=== PATIENT | male | born 1955 | race Caucasian/White ===

== ENCOUNTER 2019-08-04 14:46 | Observation (INO) | payer MEDICARE ==
[2019-08-04] MEDS ORDERED: Sodium Chloride 0.9% 1000 ML 1,000 ML IV STA (15:03)
[2019-08-04] MEDS ORDERED: NovoLIN R IV ONE (15:03)
[2019-08-04] MEDS ORDERED: Nitrostat 0.4 MG (ED) SL ONE (15:04)
[2019-08-04] MEDS ORDERED: BABY ASPIRIN 81 MG CHEW PO ONE (15:04)
--- NOTE | 2019-08-04 15:06 | ERPHSYRPT ---
- History of Present Illness Time Seen by Provider: 08/04/19 14:55 Historian: patient Exam Limitations: no limitations Physician History: Intermittent chest pain for 3 days. Worsening malaise and fatigue over past three days. Activities at Onset: none Quality: pressure Location: substernal Chest Pain Radiation: no radiation Severity of Pain-Max: moderate Severity of Pain-Current: moderate Modifying Factors: Improves With: nothing Associated Symptoms: fatigue, weakness, No nausea, No vomiting, No palpitations , No heartburn, No abdominal pain, No shortness of breath, No cough, No hurts to breathe, No diaphoresis, No chills, No fever, No swelling/lump in chest, No syncope, No rash, No headache, No dizziness, No edema, No back pain Prior Chest Pain/Cardiac Workup: heart attack Nitro Today/Relief: no nitro taken today Aspirin Treatment Today: 81 mg x 1 Allergies/Adverse Reactions: Sulfa (Sulfonamide Antibiotics) Allergy (Verified 08/04/19 15:07) Hives Home Medications: Aspirin 81 mg PO DAILY 12/28/14 [History] Atenolol 25 mg PO DAILY 12/28/14 [History] Enalapril Maleate 5 mg [Vasotec 5 MG] 0 mg PO DAILY 12/28/14 [History] Insulin Aspart [NovoLOG Insulin] 0 unit SQ .UNKNOWN 12/28/14 [History] Insulin Lispro [Humalog] 0 unit SQ .UNKNOWN 12/28/14 [History] Multivitamin [Multi-Vitamin Daily] 1 each PO DAILY 12/28/14 [History] Simvastatin [Zocor] 0 mg PO DAILY 12/28/14 [History] Escitalopram Oxalate 10 mg [Lexapro 10 MG] 20 mg PO DAILY 08/04/19 [History] Hx Tetanus, Diphtheria Vaccination/Date Given: No Hx Influenza Vaccination/Date Given: No Hx Pneumococcal Vaccination/Date Given: Yes - Review of Systems Constitutional: Fatigue, Malaise, Weakness, No Fever, No Chills Eyes: No Eye Pain, No Vision Changes Ears, Nose, & Throat: No Ear Pain, No Nose Discharge, No Throat Pain, No Throat Swelling, No Hoarse Respiratory: No Cough, No Dyspnea Cardiac: No Chest Pain, No Edema, No Syncope Abdominal/Gastrointestinal: No Abdominal Pain, No Nausea, No Vomiting, No Diarrhea, No Hematemesis, No Hematochezia, No Melena Genitourinary Symptoms: No Dysuria, No Hematuria, No Flank Pain Musculoskeletal: No Back Pain, No Neck Pain Skin: No Rash Neurological: No Dizziness, No Focal Weakness, No Sensory Changes Psychological: No Anxiety Endocrine: No Symptoms Hematologic/Lymphatic: No Easy Bleeding, No Easy Bruising All Other Systems: Reviewed and Negative - Past Medical History Pertinent Past Medical History: Yes Cardiac History: Hypertension Endocrine Medical History: Diabetes Type I - Past Surgical History Past Surgical History: Yes Cardiac: CABG, Cardiac Catheterization, Cardiac Stent - Social History Smoking Status: Never smoker Exposure to second hand smoke: No Drug Use: none 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) - Nursing Vital Signs Nursing Vital Signs: Initial Vital Signs Temperature 97.8 F 08/04/19 14:47 Pulse Rate 68 08/04/19 14:47 Respiratory Rate 16 08/04/19 14:47 Blood Pressure 173/100 08/04/19 14:47 O2 Sat by Pulse Oximetry 94 L 08/04/19 14:47 Pain Scale Pain Intensity 4 - Physical Exam General Appearance: no apparent distress, alert Eye Exam: PERRL/EOMI, eyes nml inspection Ears, Nose, Throat Exam: normal ENT inspection, moist mucous membranes Neck Exam: normal inspection, non-tender, supple, full range of motion Respiratory Exam: normal breath sounds, lungs clear, No respiratory distress Cardiovascular Exam: regular rate/rhythm, normal heart sounds, normal peripheral pulses, capillary refill <2 sec Gastrointestinal/Abdomen Exam: soft, normal bowel sounds, tenderness (mild in the epigastric area), No mass Back Exam: normal inspection, No CVA tenderness, No vertebral tenderness Extremity Exam: normal inspection, normal range of motion Neurologic Exam: alert, oriented x 3, cooperative, 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, normal mood/affect, sensation nml, No motor deficits Skin Exam: normal color, warm, dry, No jaundice, No cyanosis SpO2 Interpretation: normal SpO2: 94 O2 Delivery: Room Air - Course Nursing assessment & vital signs reviewed: Yes EKG Interpreted by Me: RATE (68), Sinus Rhythm, LAFB, NORMAL INTERVALS, Right Bundle Branch Block, NORMAL ST-T, Other (no significant change compared to 2018 EKG except for RBBB) - Radiology Exams Chest X-ray Interpretation: Interpreted by me, Reviewed by me, No Fracture, No Pneumonia, No Infiltrates, Nml Mediastinum, Other (cardiomegaly) Ordered Tests: Active Orders 24 hr Category Date Time Status Ion Exchange Operator STAT Care 08/04/19 15:02 Active EKG-ER Only STAT Care 08/04/19 15:02 Active IV Insertion STAT Care 08/04/19 15:02 Active Pulse Oximetry (ED) STAT Care 08/04/19 15:02 Active CHEST 1 VIEW (PORTABLE) Stat Exams 08/04/19 15:03 Completed AMYLASE Stat Lab 08/04/19 15:05 Completed BLOOD CULTURE Stat Lab 08/04/19 15:20 Received CBC W DIFF Stat Lab 08/04/19 15:05 Completed CMP Stat Lab 08/04/19 15:05 Completed CULTURE,URINE Stat Lab 08/04/19 15:39 Ordered LIPASE Stat Lab 08/04/19 15:05 Completed Lactic Acid Stat Lab 08/04/19 15:28 Completed PROTIME WITH INR Stat Lab 08/04/19 15:05 Completed PTT Stat Lab 08/04/19 15:05 Completed TROPONIN Q3H Lab 08/04/19 Completed TROPONIN Q3H Lab 08/04/19 20:15 Ordered TROPONIN Q3H Lab 08/04/19 23:15 Ordered TROPONIN Q3H Lab 08/05/19 02:15 Ordered TROPONIN Q3H Lab 08/05/19 05:15 Ordered UA W/RFX UR CULTURE Stat Lab 08/04/19 15:39 Completed Transfer Order Routine Transfer 08/04/19 Ordered Medication Summary Discontinued Medications Generic Name Dose Route Start Last Admin Trade Name Freq PRN Reason Stop Dose Admin Aspirin 243 mg 08/04/19 15:04 08/04/19 15:37 Baby Aspirin 81 Mg Chew PO 08/04/19 15:05 243 mg STAT ONE Administration Sodium Chloride 1,000 mls @ 999 mls/hr 08/04/19 15:03 08/04/19 16:46 Sodium Chloride 0.9% 1000 Ml IV 08/04/19 16:03 Infused .Q1H1M STA Infusion Sodium Chloride Confirm 08/04/19 15:30 Sodium Chloride 0.9% 1000 Ml Administered 08/04/19 15:31 Dose 1,000 mls @ ud .ROUTE .STK-MED ONE Insulin Human Regular 12 unit 08/04/19 15:03 08/04/19 15:36 Novolin R IV 08/04/19 15:04 12 unit STAT ONE Administration Insulin Human Regular Confirm 08/04/19 15:30 Novolin R Administered 08/04/19 15:31 Dose 1 unit .ROUTE .STK-MED ONE Nitroglycerin 0.4 mg 08/04/19 15:04 08/04/19 15:37 Nitrostat 0.4 Mg (Ed) SL 08/04/19 15:05 0.4 mg STAT ONE Administration Lab/Rad Data: Laboratory Result Diagrams 08/04/19 15:05 08/04/19 15:05 Laboratory Results 08/04/19 08/04/19 08/04/19 Range/Units Unknown 15:39 15:28 WBC (4.0-10.5) K/mm3 RBC (4.1-5.6) M/mm3 Hgb (12.5-18.0) gm/dl Hct (42-50) % MCV (78-100) fl MCH (26-32) pg MCHC (32-36) g/dl RDW (11.5-14.0) % Plt Count (150-450) K/mm3 MPV (6-9.5) fl Gran % (36.0-66.0) % Eos # (Auto) (0-0.5) Absolute Lymphs (auto) (1.0-4.6) Absolute Monos (auto) (0.0-1.3) Lymphocytes % (24.0-44.0) % Monocytes % (0.0-12.0) % Eosinophils % (0.00-5.0) % Basophils % (0.0-0.4) % Absolute Granulocytes (1.4-6.9) Basophils # (0-0.4) PT (8.83-12.87) SECONDS INR (0.8-3.0) APTT (24.1-36.1) SECONDS Sodium (137-145) mmol/L Potassium (3.5-5.1) mmol/L Chloride (98-107) mmol/L Carbon Dioxide (22-30) mmol/L Anion Gap (5-15) MEQ/L BUN (9-20) mg/dL Creatinine (0.66-1.25) mg/dL Estimated GFR ML/MIN Glucose (74-106) mg/dL Lactic Acid 1.6 (0.4-2.0) Calcium (8.4-10.2) mg/dL Total Bilirubin (0.2-1.3) mg/dL AST (17-59) U/L ALT (0-50) U/L Alkaline Phosphatase (38-126) U/L Troponin I < 0.012 (0.000-0.034) ng/mL Serum Total Protein (6.3-8.2) g/dL Albumin (3.5-5.0) g/dL Amylase (30-110) U/L Lipase (23-300) U/L Urine Color YELLOW (YELLOW) Urine Appearance CLEAR (CLEAR) Urine pH 5.0 (5-6) Ur Specific [place] 1.028 (1.005-1.025) Urine Protein NEGATIVE (Negative) Urine Ketones NEGATIVE (NEGATIVE) Urine Blood NEGATIVE (0-5) Carlos/ul Urine Nitrite NEGATIVE (NEGATIVE) Urine Bilirubin NEGATIVE (NEGATIVE) Urine Urobilinogen NEGATIVE (0-1) mg/dL Ur Leukocyte Esterase NEGATIVE (NEGATIVE) Urine WBC (Auto) NONE (0-5) /HPF Urine RBC (Auto) 3-5 (0-2) /HPF U Epithel Cells (Auto) NONE (FEW) /HPF Urine Bacteria (Auto) NONE (NEGATIVE) /HPF Urine Mucus (Auto) SLIGHT (NEGATIVE) /HPF Urine Culture Reflexed ORDERED SEPARATELY (NO) Urine Glucose >=500 (NEGATIVE) mg/dL 08/04/19 08/04/19 08/04/19 Range/Units 15:05 15:05 15:05 WBC (4.0-10.5) K/mm3 RBC (4.1-5.6) M/mm3 Hgb (12.5-18.0) gm/dl Hct (42-50) % MCV (78-100) fl MCH (26-32) pg MCHC (32-36) g/dl RDW (11.5-14.0) % Plt Count (150-450) K/mm3 MPV (6-9.5) fl Gran % (36.0-66.0) % Eos # (Auto) (0-0.5) Absolute Lymphs (auto) (1.0-4.6) Absolute Monos (auto) (0.0-1.3) Lymphocytes % (24.0-44.0) % Monocytes % (0.0-12.0) % Eosinophils % (0.00-5.0) % Basophils % (0.0-0.4) % Absolute Granulocytes (1.4-6.9) Basophils # (0-0.4) PT 11.2 (8.83-12.87) SECONDS INR 0.99 (0.8-3.0) APTT 31.5 (24.1-36.1) SECONDS Sodium 138 (137-145) mmol/L Potassium 4.9 (3.5-5.1) mmol/L Chloride 102 (98-107) mmol/L Carbon Dioxide 22 (22-30) mmol/L Anion Gap 18.4 H (5-15) MEQ/L BUN 18 (9-20) mg/dL Creatinine 0.68 (0.66-1.25) mg/dL Estimated GFR > 60.0 ML/MIN Glucose 364 H (74-106) mg/dL Lactic Acid (0.4-2.0) Calcium 9.6 (8.4-10.2) mg/dL Total Bilirubin 0.50 (0.2-1.3) mg/dL AST 34 (17-59) U/L ALT 23 (0-50) U/L Alkaline Phosphatase 67 (38-126) U/L Troponin I (0.000-0.034) ng/mL Serum Total Protein 7.7 (6.3-8.2) g/dL Albumin 4.2 (3.5-5.0) g/dL Amylase 98 (30-110) U/L Lipase 376 H (23-300) U/L Urine Color (YELLOW) Urine Appearance (CLEAR) Urine pH (5-6) Ur Specific [place] (1.005-1.025) Urine Protein (Negative) Urine Ketones (NEGATIVE) Urine Blood (0-5) Carlos/ul Urine Nitrite (NEGATIVE) Urine Bilirubin (NEGATIVE) Urine Urobilinogen (0-1) mg/dL Ur Leukocyte Esterase (NEGATIVE) Urine WBC (Auto) (0-5) /HPF Urine RBC (Auto) (0-2) /HPF U Epithel Cells (Auto) (FEW) /HPF Urine Bacteria (Auto) (NEGATIVE) /HPF Urine Mucus (Auto) (NEGATIVE) /HPF Urine Culture Reflexed (NO) Urine Glucose (NEGATIVE) mg/dL 08/04/19 Range/Units 15:05 WBC 5.2 (4.0-10.5) K/mm3 RBC 5.12 (4.1-5.6) M/mm3 Hgb 13.2 (12.5-18.0) gm/dl Hct 40.0 L (42-50) % MCV 78.1 (78-100) fl MCH 25.8 L (26-32) pg MCHC 33.0 (32-36) g/dl RDW 14.8 H (11.5-14.0) % Plt Count 275 (150-450) K/mm3 MPV 9.6 H (6-9.5) fl Gran % 67.2 H (36.0-66.0) % Eos # (Auto) 0.10 (0-0.5) Absolute Lymphs (auto) 1.20 (1.0-4.6) Absolute Monos (auto) 0.40 (0.0-1.3) Lymphocytes % 22.9 L (24.0-44.0) % Monocytes % 7.6 (0.0-12.0) % Eosinophils % 1.9 (0.00-5.0) % Basophils % 0.4 (0.0-0.4) % Absolute Granulocytes 3.51 (1.4-6.9) Basophils # 0.02 (0-0.4) PT (8.83-12.87) SECONDS INR (0.8-3.0) APTT (24.1-36.1) SECONDS Sodium (137-145) mmol/L Potassium (3.5-5.1) mmol/L Chloride (98-107) mmol/L Carbon Dioxide (22-30) mmol/L Anion Gap (5-15) MEQ/L BUN (9-20) mg/dL Creatinine (0.66-1.25) mg/dL Estimated GFR ML/MIN Glucose (74-106) mg/dL Lactic Acid (0.4-2.0) Calcium (8.4-10.2) mg/dL Total Bilirubin (0.2-1.3) mg/dL AST (17-59) U/L ALT (0-50) U/L Alkaline Phosphatase (38-126) U/L Troponin I (0.000-0.034) ng/mL Serum Total Protein (6.3-8.2) g/dL Albumin (3.5-5.0) g/dL Amylase (30-110) U/L Lipase (23-300) U/L Urine Color (YELLOW) Urine Appearance (CLEAR) Urine pH (5-6) Ur Specific [place] (1.005-1.025) Urine Protein (Negative) Urine Ketones (NEGATIVE) Urine Blood (0-5) Carlos/ul Urine Nitrite (NEGATIVE) Urine Bilirubin (NEGATIVE) Urine Urobilinogen (0-1) mg/dL Ur Leukocyte Esterase (NEGATIVE) Urine WBC (Auto) (0-5) /HPF Urine RBC (Auto) (0-2) /HPF U Epithel Cells (Auto) (FEW) /HPF Urine Bacteria (Auto) (NEGATIVE) /HPF Urine Mucus (Auto) (NEGATIVE) /HPF Urine Culture Reflexed (NO) Urine Glucose (NEGATIVE) mg/dL - Progress Progress: improved Air Movement: good Progress Note: 08/04/19 17:45 Patient has remained chest pain free after one SL nitroglycerin. Patient has remained in sinus rhythm on the media monitor throughout his time in the emergency department. TAMIKA Risk Score for UA: 4; HEART score: 4, both place patient at moderate risk of MACE 08/04/19 17:50 Discussed the case with Dr Steen, Hospitalist. Dr Steen accepted the patient for observation at [facility] for further evaluation and monitoring. Blood Culture(s) Obtained: No Antibiotics given: No Discussed with : Mague Will see patient in: hospital (observation) Counseled pt/family regarding: lab results, diagnosis, need for follow-up, rad results - Departure Departure Disposition: Observation ([facility]) Clinical Impression: Chest pain at rest, Hyperglycemia, unspecified Hypertension Qualifiers: Hypertension type: essential hypertension Qualified Code(s): I10 - Essential ( primary) hypertension Condition: Fair Critical Care Time: No Referrals: ARTURO BOB NP [Primary Care Provider] -
[2019-08-04 15:15] LABS: BASOPHIL % 0.4 % (0.0-0.4); Basophil (Absolute #) 0.02 (0-0.4); Eosinophil % 1.9 % (0.00-5.0); Granulocyte Absolute (ANC) 3.51 (1.4-6.9); Granulocytes % 67.2 % (36.0-66.0); Hemoglobin 13.2 gm/dl (12.5-18.0); Lymphocytes % 22.9 % (24.0-44.0); Mean Cell Volume 78.1 fl (78-100); Mean Corpuscular Hemoglobin 25.8 pg (26-32); Mean Platelet Volume 9.6 fl (6-9.5); Monocytes % 7.6 % (0.0-12.0); Platelet Count 275 K/mm3 (150-450); Red Blood Count 5.12 M/mm3 (4.1-5.6); Red Cell Distribution Width 14.8 % (11.5-14.0); White Blood Count 5.2 K/mm3 (4.0-10.5)
[2019-08-04] MEDS ORDERED: NovoLIN R ONE (15:30)
[2019-08-04] MEDS ORDERED: Sodium Chloride 0.9% 1000 ML 1,000 ML ONE (15:30)
[2019-08-04 15:32] LABS: INR 0.99 (0.8-3.0); PROTIME 11.2 SECONDS (8.83-12.87)
[2019-08-04 15:35] LABS: PTT 31.5 SECONDS (24.1-36.1)
[2019-08-04 15:38] LABS: ALBUMIN 4.2 g/dL (3.5-5.0); ALKALINE PHOSPHATASE 67 U/L (38-126); ANION GAP 18.4 MEQ/L (5-15); BLOOD UREA NITROGEN 18 mg/dL (9-20); CHLORIDE 102 mmol/L (98-107); Calcium 9.6 mg/dL (8.4-10.2); Carbon Dioxide 22 mmol/L (22-30); Creatinine 1 0.68 mg/dL (0.66-1.25); Glucose 364 mg/dL (74-106); Potassium 4.9 mmol/L (3.5-5.1); SGOT/AST 34 U/L (17-59); SGPT/ALT 23 U/L (0-50); SODIUM 138 mmol/L (137-145); Total Protein 7.7 g/dL (6.3-8.2)
[2019-08-04 15:51] LABS: AMYLASE 98 U/L (30-110); LIPASE 376 U/L (23-300)
--- NOTE | 2019-08-04 16:16 | XRAY ---
Indication: Chest pain. Possible sepsis. Comparison: December 28, 2014. Portable chest remains clear. Heart is now enlarged with interval CABG surgery. Bony thorax intact. Impression: Cardiomegaly. Negative acute pneumonic process or CHF.
[2019-08-04 16:25] LABS: Appearance CLEAR (CLEAR); Bilirubin NEGATIVE (NEGATIVE); Blood NEGATIVE Ery/ul (0-5); Glucose >=500 mg/dL (NEGATIVE); Ketones NEGATIVE (NEGATIVE); Leukocyte Esterase NEGATIVE (NEGATIVE); Mucus SLIGHT /HPF (NEGATIVE); Nitrite NEGATIVE (NEGATIVE); Protein,Urine Dip NEGATIVE (Negative); Specific Gravity 1.028 (1.005-1.025); Urobilinogen NEGATIVE mg/dL (0-1)
[2019-08-04] MEDS ORDERED: TYLENOL 325 MG PO PRN (18:22)
[2019-08-04] MEDS ORDERED: NovoLIN R SQ PRN (18:22)
[2019-08-04] MEDS: Sodium Chloride 0.9% 1000 ML 1,000 ML IV SCH (19:45)
[2019-08-04] MEDS ORDERED: Lantus Insulin SQ SCH (22:00)
[2019-08-04] MEDS ORDERED: Pepcid 20 MG PO SCH (22:00)
[2019-08-04] MEDS ORDERED: NEURONTIN 300 MG PO SCH (22:00)
[2019-08-04] MEDS ORDERED: Glucophage 500 MG PO SCH (22:00)
[2019-08-04] MEDS ORDERED: ELAVIL 25 MG PO SCH (22:00)
[2019-08-04] MEDS: NovoLOG Insulin SQ PRN (22:43)
[2019-08-05 03:10] LABS: BASOPHIL % 0.5 % (0.0-0.4); Basophil (Absolute #) 0.03 (0-0.4); Eosinophil (Absolute #) 0.13 (0-0.5); Granulocyte Absolute (ANC) 3.89 (1.4-6.9); Granulocytes % 59.8 % (36.0-66.0); Hematocrit 38.1 % (42-50); Hemoglobin 12.3 gm/dl (12.5-18.0); Lymphocyte (Absolute #) 1.93 (1.0-4.6); Lymphocytes % 29.7 % (24.0-44.0); Mean Corpuscular Hemoglobin 25.5 pg (26-32); Mean Corpuscular Hgb Concent. 32.3 g/dl (32-36); Mean Platelet Volume 9.6 fl (6-9.5); Monocyte (Absolute #) 0.52 (0.0-1.3); Platelet Count 264 K/mm3 (150-450); Red Blood Count 4.82 M/mm3 (4.1-5.6); Red Cell Distribution Width 14.8 % (11.5-14.0); White Blood Count 6.5 K/mm3 (4.0-10.5)
[2019-08-05 03:28] LABS: ANION GAP 14.9 MEQ/L (5-15); BLOOD UREA NITROGEN 14 mg/dL (9-20); CHLORIDE 109 mmol/L (98-107); Carbon Dioxide 23 mmol/L (22-30); Creatinine 1 0.71 mg/dL (0.66-1.25); Glucose 94 mg/dL (74-106); SODIUM 143 mmol/L (137-145)
[2019-08-05 03:32] LABS: Potassium 3.8 mmol/L (3.5-5.1)
[2019-08-05] MEDS: Sodium Chloride 0.9% 1000 ML 1,000 ML IV SCH (05:26)
[2019-08-05 07:55] VITALS: BP 199/93; PULSE 97; O2SAT 95
[2019-08-05] MEDS ORDERED: Glucophage 500 MG PO SCH (08:00)
[2019-08-05] MEDS: NovoLOG Insulin SQ PRN (08:15)
--- NOTE | 2019-08-05 08:29 | PCM.SSS ---
History of Present Illness - Chief Complaint Chief Complaint: Chest Pain, Malaise, Elevated Lipase History of Present Illness: is a 64 year old male with a 2 day history of poor energy level, on the date of arrival he developed pain in his chest with belching and gas, he has been completely pain free since admission. no nausea, vomiting or abdominal discomfort during the entire episode. he has a history of CABG, has not seen cardiology in the last 2 years. - Review of Systems Constitutional: No Fever, No Chills Cardiac: Chest Pain Abdominal/Gastrointestinal: No Abdominal Pain, No Nausea, No Vomiting, No Diarrhea Genitourinary Symptoms: No Dysuria Skin: No Rash All Other Systems: Reviewed and Negative Medications & Allergies Home Medications: Home Medication List Aspirin 81 mg PO DAILY 12/28/14 [History Confirmed 08/04/19] Insulin Lispro [Humalog] 0 unit SQ UD 12/28/14 [History Confirmed 08/04/19] Multivitamin [Multi-Vitamin Daily] 1 each PO DAILY 12/28/14 [History Confirmed 08/04/19] Amitriptyline HCl 25 mg [Elavil 25 mg] 25 mg PO BID 08/04/19 [History Confirmed 08/04/19] Atorvastatin Calcium 80 mg PO DAILY 08/04/19 [History Confirmed 08/04/19] Escitalopram Oxalate 10 mg [Lexapro 10 MG] 20 mg PO DAILY 08/04/19 [History Confirmed 08/04/19] Gabapentin 600 mg PO TID 08/04/19 [History Confirmed 08/04/19] Insulin Glargine,Hum.rec.anlog [Mike Nettles] 80 units SQ HS 08/04/19 [ History Confirmed 08/04/19] Lisinopril 10 mg [Zestril 10 MG] 10 mg PO DAILY 08/04/19 [History Confirmed 08/04/19] Metformin HCl [Glucophage] 1,000 mg PO BID 08/04/19 [History Confirmed 08/04/19] Metoprolol Tartrate 25 mg PO BID #0 08/05/19 [Rx Confirmed 08/04/19] Omeprazole 40 mg PO DAILY #30 capsule. 08/05/19 [Rx] Allergies/Adverse Reactions: Allergies Allergy/AdvReac Type Severity Reaction Status Date / Time Sulfa (Sulfonamide Allergy Hives Verified 08/04/19 15:07 Antibiotics) - Past Medical History Past Medical History: Yes Neurological History: No Pertinent History Cardiac History: Congestive Heart Failure, Hypertension, Myocardial Infarction ( [place]) Respiratory History: No Pertinent History Endocrine Medical History: Diabetes Type II Musculoskelatal History: No Pertinent History GI Medical History: No Pertinent History History: No Pertinent History Pyscho-Social History: Anxiety, Depression Male Reproductive Disorders: No Pertinent History - Past Surgical History Past Surgical History: Yes Neuro Surgical History: No Pertinent History Cardiac History: CABG, Cardiac Catheterization, Cardiac Stent Respiratory Surgery: No Pertinent History GI Surgical History: No Pertinent History Genitourinary Surgical Hx: No Pertinent History Musculskeletal Surgical Hx: No Pertinent History Male Surgical History: No Pertinent History - Social History Smoking Status: Never smoker Exposure to second hand smoke: No Alcohol: Occasionally Drug Use: none - Physical Exam Vital Signs: Vital Signs - 24 hr Temp Pulse Resp BP Pulse Ox 08/05/19 07:54 98.3 F 97 H 20 199/93 95 08/05/19 04:06 97.8 F 75 17 146/86 94 L 08/05/19 00:13 98.5 F 74 20 187/88 95 08/04/19 20:16 97.9 F 68 18 130/94 96 08/04/19 19:41 97.9 F 68 18 130/94 96 08/04/19 18:56 95 08/04/19 18:08 94 L 08/04/19 18:07 68 18 158/90 95 08/04/19 17:07 98.0 F 64 14 138/76 96 08/04/19 16:45 64 18 129/70 95 08/04/19 15:50 98.1 F 68 17 102/59 93 L 08/04/19 15:22 96 08/04/19 14:47 97.8 F 68 16 173/100 94 L General Appearance: no apparent distress, obese Neurologic Exam: alert, oriented x 3, cooperative Respiratory Exam: normal breath sounds, lungs clear, No respiratory distress Cardiovascular Exam: regular rate/rhythm, normal heart sounds, normal peripheral pulses Gastrointestinal/Abdomen Exam: soft, normal bowel sounds, No tenderness, No mass Extremity Exam: normal inspection, normal range of motion, pelvis stable Skin Exam: normal color, warm, dry, No rash Results - Labs Lab/Micro Results: Accuchecks Date 08/05/19 Accucheck Value: 228 Accucheck Value: 64 Accucheck Value: 168 Accucheck Value: 283 Lab Results-Last 24 Hours 08/04/19 08/04/19 08/04/19 Range/Units 15:05 15:05 15:05 WBC 5.2 (4.0-10.5) K/mm3 RBC 5.12 (4.1-5.6) M/mm3 Hgb 13.2 (12.5-18.0) gm/dl Hct 40.0 L (42-50) % MCV 78.1 (78-100) fl MCH 25.8 L (26-32) pg MCHC 33.0 (32-36) g/dl RDW 14.8 H (11.5-14.0) % Plt Count 275 (150-450) K/mm3 MPV 9.6 H (6-9.5) fl Gran % 67.2 H (36.0-66.0) % Eos # (Auto) 0.10 (0-0.5) Absolute Lymphs (auto) 1.20 (1.0-4.6) Absolute Monos (auto) 0.40 (0.0-1.3) Lymphocytes % 22.9 L (24.0-44.0) % Monocytes % 7.6 (0.0-12.0) % Eosinophils % 1.9 (0.00-5.0) % Basophils % 0.4 (0.0-0.4) % Absolute Granulocytes 3.51 (1.4-6.9) Basophils # 0.02 (0-0.4) PT 11.2 (8.83-12.87) SECONDS INR 0.99 (0.8-3.0) APTT 31.5 (24.1-36.1) SECONDS Sodium 138 (137-145) mmol/L Potassium 4.9 (3.5-5.1) mmol/L Chloride 102 (98-107) mmol/L Carbon Dioxide 22 (22-30) mmol/L Anion Gap 18.4 H (5-15) MEQ/L BUN 18 (9-20) mg/dL Creatinine 0.68 (0.66-1.25) mg/dL Estimated GFR > 60.0 ML/MIN Glucose 364 H (74-106) mg/dL Lactic Acid (0.4-2.0) Calcium 9.6 (8.4-10.2) mg/dL Total Bilirubin 0.50 (0.2-1.3) mg/dL AST 34 (17-59) U/L ALT 23 (0-50) U/L Alkaline Phosphatase 67 (38-126) U/L Troponin I (0.000-0.034) ng/mL Serum Total Protein 7.7 (6.3-8.2) g/dL Albumin 4.2 (3.5-5.0) g/dL Amylase (30-110) U/L Lipase (23-300) U/L Urine Color (YELLOW) Urine Appearance (CLEAR) Urine pH (5-6) Ur Specific [place] (1.005-1.025) Urine Protein (Negative) Urine Ketones (NEGATIVE) Urine Blood (0-5) Carlos/ul Urine Nitrite (NEGATIVE) Urine Bilirubin (NEGATIVE) Urine Urobilinogen (0-1) mg/dL Ur Leukocyte Esterase (NEGATIVE) Urine WBC (Auto) (0-5) /HPF Urine RBC (Auto) (0-2) /HPF U Epithel Cells (Auto) (FEW) /HPF Urine Bacteria (Auto) (NEGATIVE) /HPF Urine Mucus (Auto) (NEGATIVE) /HPF Urine Culture Reflexed (NO) Urine Glucose (NEGATIVE) mg/dL 08/04/19 08/04/19 08/04/19 Range/Units 15:05 15:28 15:39 WBC (4.0-10.5) K/mm3 RBC (4.1-5.6) M/mm3 Hgb (12.5-18.0) gm/dl Hct (42-50) % MCV (78-100) fl MCH (26-32) pg MCHC (32-36) g/dl RDW (11.5-14.0) % Plt Count (150-450) K/mm3 MPV (6-9.5) fl Gran % (36.0-66.0) % Eos # (Auto) (0-0.5) Absolute Lymphs (auto) (1.0-4.6) Absolute Monos (auto) (0.0-1.3) Lymphocytes % (24.0-44.0) % Monocytes % (0.0-12.0) % Eosinophils % (0.00-5.0) % Basophils % (0.0-0.4) % Absolute Granulocytes (1.4-6.9) Basophils # (0-0.4) PT (8.83-12.87) SECONDS INR (0.8-3.0) APTT (24.1-36.1) SECONDS Sodium (137-145) mmol/L Potassium (3.5-5.1) mmol/L Chloride (98-107) mmol/L Carbon Dioxide (22-30) mmol/L Anion Gap (5-15) MEQ/L BUN (9-20) mg/dL Creatinine (0.66-1.25) mg/dL Estimated GFR ML/MIN Glucose (74-106) mg/dL Lactic Acid 1.6 (0.4-2.0) Calcium (8.4-10.2) mg/dL Total Bilirubin (0.2-1.3) mg/dL AST (17-59) U/L ALT (0-50) U/L Alkaline Phosphatase (38-126) U/L Troponin I (0.000-0.034) ng/mL Serum Total Protein (6.3-8.2) g/dL Albumin (3.5-5.0) g/dL Amylase 98 (30-110) U/L Lipase 376 H (23-300) U/L Urine Color YELLOW (YELLOW) Urine Appearance CLEAR (CLEAR) Urine pH 5.0 (5-6) Ur Specific [place] 1.028 (1.005-1.025) Urine Protein NEGATIVE (Negative) Urine Ketones NEGATIVE (NEGATIVE) Urine Blood NEGATIVE (0-5) Carlos/ul Urine Nitrite NEGATIVE (NEGATIVE) Urine Bilirubin NEGATIVE (NEGATIVE) Urine Urobilinogen NEGATIVE (0-1) mg/dL Ur Leukocyte Esterase NEGATIVE (NEGATIVE) Urine WBC (Auto) NONE (0-5) /HPF Urine RBC (Auto) 3-5 (0-2) /HPF U Epithel Cells (Auto) NONE (FEW) /HPF Urine Bacteria (Auto) NONE (NEGATIVE) /HPF Urine Mucus (Auto) SLIGHT (NEGATIVE) /HPF Urine Culture Reflexed ORDERED SEPARATELY (NO) Urine Glucose >=500 (NEGATIVE) mg/dL 08/04/19 08/04/19 08/04/19 Range/Units 21:02 23:29 Unknown WBC (4.0-10.5) K/mm3 RBC (4.1-5.6) M/mm3 Hgb (12.5-18.0) gm/dl Hct (42-50) % MCV (78-100) fl MCH (26-32) pg MCHC (32-36) g/dl RDW (11.5-14.0) % Plt Count (150-450) K/mm3 MPV (6-9.5) fl Gran % (36.0-66.0) % Eos # (Auto) (0-0.5) Absolute Lymphs (auto) (1.0-4.6) Absolute Monos (auto) (0.0-1.3) Lymphocytes % (24.0-44.0) % Monocytes % (0.0-12.0) % Eosinophils % (0.00-5.0) % Basophils % (0.0-0.4) % Absolute Granulocytes (1.4-6.9) Basophils # (0-0.4) PT (8.83-12.87) SECONDS INR (0.8-3.0) APTT (24.1-36.1) SECONDS Sodium (137-145) mmol/L Potassium (3.5-5.1) mmol/L Chloride (98-107) mmol/L Carbon Dioxide (22-30) mmol/L Anion Gap (5-15) MEQ/L BUN (9-20) mg/dL Creatinine (0.66-1.25) mg/dL Estimated GFR ML/MIN Glucose (74-106) mg/dL Lactic Acid (0.4-2.0) Calcium (8.4-10.2) mg/dL Total Bilirubin (0.2-1.3) mg/dL AST (17-59) U/L ALT (0-50) U/L Alkaline Phosphatase (38-126) U/L Troponin I < 0.012 < 0.012 < 0.012 (0.000-0.034) ng/mL Serum Total Protein (6.3-8.2) g/dL Albumin (3.5-5.0) g/dL Amylase (30-110) U/L Lipase (23-300) U/L Urine Color (YELLOW) Urine Appearance (CLEAR) Urine pH (5-6) Ur Specific [place] (1.005-1.025) Urine Protein (Negative) Urine Ketones (NEGATIVE) Urine Blood (0-5) Carlos/ul Urine Nitrite (NEGATIVE) Urine Bilirubin (NEGATIVE) Urine Urobilinogen (0-1) mg/dL Ur Leukocyte Esterase (NEGATIVE) Urine WBC (Auto) (0-5) /HPF Urine RBC (Auto) (0-2) /HPF U Epithel Cells (Auto) (FEW) /HPF Urine Bacteria (Auto) (NEGATIVE) /HPF Urine Mucus (Auto) (NEGATIVE) /HPF Urine Culture Reflexed (NO) Urine Glucose (NEGATIVE) mg/dL 08/05/19 08/05/19 08/05/19 Range/Units 03:08 03:08 03:08 WBC 6.5 (4.0-10.5) K/mm3 RBC 4.82 (4.1-5.6) M/mm3 Hgb 12.3 L (12.5-18.0) gm/dl Hct 38.1 L (42-50) % MCV 79.0 (78-100) fl MCH 25.5 L (26-32) pg MCHC 32.3 (32-36) g/dl RDW 14.8 H (11.5-14.0) % Plt Count 264 (150-450) K/mm3 MPV 9.6 H (6-9.5) fl Gran % 59.8 (36.0-66.0) % Eos # (Auto) 0.13 (0-0.5) Absolute Lymphs (auto) 1.93 (1.0-4.6) Absolute Monos (auto) 0.52 (0.0-1.3) Lymphocytes % 29.7 (24.0-44.0) % Monocytes % 8.0 (0.0-12.0) % Eosinophils % 2.0 (0.00-5.0) % Basophils % 0.5 (0.0-0.4) % Absolute Granulocytes 3.89 (1.4-6.9) Basophils # 0.03 (0-0.4) PT (8.83-12.87) SECONDS INR (0.8-3.0) APTT (24.1-36.1) SECONDS Sodium 143 (137-145) mmol/L Potassium 3.8 D (3.5-5.1) mmol/L Chloride 109 H (98-107) mmol/L Carbon Dioxide 23 (22-30) mmol/L Anion Gap 14.9 (5-15) MEQ/L BUN 14 (9-20) mg/dL Creatinine 0.71 (0.66-1.25) mg/dL Estimated GFR > 60.0 ML/MIN Glucose 94 (74-106) mg/dL Lactic Acid (0.4-2.0) Calcium 9.0 (8.4-10.2) mg/dL Total Bilirubin (0.2-1.3) mg/dL AST (17-59) U/L ALT (0-50) U/L Alkaline Phosphatase (38-126) U/L Troponin I (0.000-0.034) ng/mL Serum Total Protein (6.3-8.2) g/dL Albumin (3.5-5.0) g/dL Amylase (30-110) U/L Lipase 420 H (23-300) U/L Urine Color (YELLOW) Urine Appearance (CLEAR) Urine pH (5-6) Ur Specific [place] (1.005-1.025) Urine Protein (Negative) Urine Ketones (NEGATIVE) Urine Blood (0-5) Carlos/ul Urine Nitrite (NEGATIVE) Urine Bilirubin (NEGATIVE) Urine Urobilinogen (0-1) mg/dL Ur Leukocyte Esterase (NEGATIVE) Urine WBC (Auto) (0-5) /HPF Urine RBC (Auto) (0-2) /HPF U Epithel Cells (Auto) (FEW) /HPF Urine Bacteria (Auto) (NEGATIVE) /HPF Urine Mucus (Auto) (NEGATIVE) /HPF Urine Culture Reflexed (NO) Urine Glucose (NEGATIVE) mg/dL 08/05/19 08/05/19 Range/Units 03:08 04:58 WBC (4.0-10.5) K/mm3 RBC (4.1-5.6) M/mm3 Hgb (12.5-18.0) gm/dl Hct (42-50) % MCV (78-100) fl MCH (26-32) pg MCHC (32-36) g/dl RDW (11.5-14.0) % Plt Count (150-450) K/mm3 MPV (6-9.5) fl Gran % (36.0-66.0) % Eos # (Auto) (0-0.5) Absolute Lymphs (auto) (1.0-4.6) Absolute Monos (auto) (0.0-1.3) Lymphocytes % (24.0-44.0) % Monocytes % (0.0-12.0) % Eosinophils % (0.00-5.0) % Basophils % (0.0-0.4) % Absolute Granulocytes (1.4-6.9) Basophils # (0-0.4) PT (8.83-12.87) SECONDS INR (0.8-3.0) APTT (24.1-36.1) SECONDS Sodium (137-145) mmol/L Potassium (3.5-5.1) mmol/L Chloride (98-107) mmol/L Carbon Dioxide (22-30) mmol/L Anion Gap (5-15) MEQ/L BUN (9-20) mg/dL Creatinine (0.66-1.25) mg/dL Estimated GFR ML/MIN Glucose (74-106) mg/dL Lactic Acid (0.4-2.0) Calcium (8.4-10.2) mg/dL Total Bilirubin (0.2-1.3) mg/dL AST (17-59) U/L ALT (0-50) U/L Alkaline Phosphatase (38-126) U/L Troponin I 0.014 0.013 (0.000-0.034) ng/mL Serum Total Protein (6.3-8.2) g/dL Albumin (3.5-5.0) g/dL Amylase (30-110) U/L Lipase (23-300) U/L Urine Color (YELLOW) Urine Appearance (CLEAR) Urine pH (5-6) Ur Specific [place] (1.005-1.025) Urine Protein (Negative) Urine Ketones (NEGATIVE) Urine Blood (0-5) Carlos/ul Urine Nitrite (NEGATIVE) Urine Bilirubin (NEGATIVE) Urine Urobilinogen (0-1) mg/dL Ur Leukocyte Esterase (NEGATIVE) Urine WBC (Auto) (0-5) /HPF Urine RBC (Auto) (0-2) /HPF U Epithel Cells (Auto) (FEW) /HPF Urine Bacteria (Auto) (NEGATIVE) /HPF Urine Mucus (Auto) (NEGATIVE) /HPF Urine Culture Reflexed (NO) Urine Glucose (NEGATIVE) mg/dL Microbiology 08/04/19 03:44 Urine Culture - Preliminary Clean Catch Midstream NO GROWTH TO DATE Accuchecks Date 08/05/19 Accucheck Value: 228 Accucheck Value: 64 Accucheck Value: 168 Accucheck Value: 283 - Radiology Impressions Radiology Exams & Impressions: Radiology Procedures Category Date Time Status CHEST 1 VIEW (PORTABLE) Stat Exams 08/04/19 15:03 Completed Assessment/Plan (1) Chest pain Current Visit: Yes Status: Acute Assessment & Plan: IL ruled out, possibly GI cause. will add PPI and have f/u with primary and cardiology. may need gallbladder ultrasound if symptoms recur in light of minimal lipase elevation, no clinical signs of pancreatitis Code(s): R07.9 - CHEST PAIN, UNSPECIFIED (2) Hypertension Current Visit: Yes Status: Acute Qualifiers: Hypertension type: essential hypertension Qualified Code(s): I10 - Essential (primary) hypertension Code(s): I10 - ESSENTIAL (PRIMARY) HYPERTENSION (3) IDDM (insulin dependent diabetes mellitus) Current Visit: No Status: Acute Code(s): E11.9 - TYPE 2 DIABETES MELLITUS WITHOUT COMPLICATIONS; Z79.4 - HOSPICE MASSAGE THERAPIST (CURRENT) USE OF INSULIN Hospital Summary - Vitals & Intake/Output Vital Signs: Vital Signs Temperature 98.3 F 08/05/19 07:54 Pulse Rate 97 H 08/05/19 07:54 Respiratory Rate 20 08/05/19 07:54 Blood Pressure 199/93 08/05/19 07:54 O2 Sat by Pulse Oximetry 95 08/05/19 07:54 Intake & Output: Intake & Output 08/02/19 08/03/19 08/04/19 08/05/19 11:59 11:59 11:59 11:59 Intake Total 1630 Output Total 1175 Balance 455 Weight 116.4 kg - Lab Result Diagrams: 08/05/19 03:08 08/05/19 03:08 Lab Results-Last 24 Hrs: Accuchecks Date 08/05/19 Accucheck Value: 228 Accucheck Value: 64 Accucheck Value: 168 Accucheck Value: 283 Lab Results-Last 24 Hours 09/19/19 09/19/19 09/19/19 Range/Units 15:05 15:05 15:05 WBC 5.2 (4.0-10.5) K/mm3 RBC 5.12 (4.1-5.6) M/mm3 Hgb 13.2 (12.5-18.0) gm/dl Hct 40.0 L (42-50) % MCV 78.1 (78-100) fl MCH 25.8 L (26-32) pg MCHC 33.0 (32-36) g/dl RDW 14.8 H (11.5-14.0) % Plt Count 275 (150-450) K/mm3 MPV 9.6 H (6-9.5) fl Gran % 67.2 H (36.0-66.0) % Eos # (Auto) 0.10 (0-0.5) Absolute Lymphs (auto) 1.20 (1.0-4.6) Absolute Monos (auto) 0.40 (0.0-1.3) Lymphocytes % 22.9 L (24.0-44.0) % Monocytes % 7.6 (0.0-12.0) % Eosinophils % 1.9 (0.00-5.0) % Basophils % 0.4 (0.0-0.4) % Absolute Granulocytes 3.51 (1.4-6.9) Basophils # 0.02 (0-0.4) PT 11.2 (8.83-12.87) SECONDS INR 0.99 (0.8-3.0) APTT 31.5 (24.1-36.1) SECONDS Sodium 138 (137-145) mmol/L Potassium 4.9 (3.5-5.1) mmol/L Chloride 102 (98-107) mmol/L Carbon Dioxide 22 (22-30) mmol/L Anion Gap 18.4 H (5-15) MEQ/L BUN 18 (9-20) mg/dL Creatinine 0.68 (0.66-1.25) mg/dL Estimated GFR > 60.0 ML/MIN Glucose 364 H (74-106) mg/dL Lactic Acid (0.4-2.0) Calcium 9.6 (8.4-10.2) mg/dL Total Bilirubin 0.50 (0.2-1.3) mg/dL AST 34 (17-59) U/L ALT 23 (0-50) U/L Alkaline Phosphatase 67 (38-126) U/L Troponin I (0.000-0.034) ng/mL Serum Total Protein 7.7 (6.3-8.2) g/dL Albumin 4.2 (3.5-5.0) g/dL Amylase (30-110) U/L Lipase (23-300) U/L Urine Color (YELLOW) Urine Appearance (CLEAR) Urine pH (5-6) Ur Specific [place] (1.005-1.025) Urine Protein (Negative) Urine Ketones (NEGATIVE) Urine Blood (0-5) Carlos/ul Urine Nitrite (NEGATIVE) Urine Bilirubin (NEGATIVE) Urine Urobilinogen (0-1) mg/dL Ur Leukocyte Esterase (NEGATIVE) Urine WBC (Auto) (0-5) /HPF Urine RBC (Auto) (0-2) /HPF U Epithel Cells (Auto) (FEW) /HPF Urine Bacteria (Auto) (NEGATIVE) /HPF Urine Mucus (Auto) (NEGATIVE) /HPF Urine Culture Reflexed (NO) Urine Glucose (NEGATIVE) mg/dL 08/04/19 08/04/19 08/04/19 Range/Units 15:05 15:28 15:39 WBC (4.0-10.5) K/mm3 RBC (4.1-5.6) M/mm3 Hgb (12.5-18.0) gm/dl Hct (42-50) % MCV (78-100) fl MCH (26-32) pg MCHC (32-36) g/dl RDW (11.5-14.0) % Plt Count (150-450) K/mm3 MPV (6-9.5) fl Gran % (36.0-66.0) % Eos # (Auto) (0-0.5) Absolute Lymphs (auto) (1.0-4.6) Absolute Monos (auto) (0.0-1.3) Lymphocytes % (24.0-44.0) % Monocytes % (0.0-12.0) % Eosinophils % (0.00-5.0) % Basophils % (0.0-0.4) % Absolute Granulocytes (1.4-6.9) Basophils # (0-0.4) PT (8.83-12.87) SECONDS INR (0.8-3.0) APTT (24.1-36.1) SECONDS Sodium (137-145) mmol/L Potassium (3.5-5.1) mmol/L Chloride (98-107) mmol/L Carbon Dioxide (22-30) mmol/L Anion Gap (5-15) MEQ/L BUN (9-20) mg/dL Creatinine (0.66-1.25) mg/dL Estimated GFR ML/MIN Glucose (74-106) mg/dL Lactic Acid 1.6 (0.4-2.0) Calcium (8.4-10.2) mg/dL Total Bilirubin (0.2-1.3) mg/dL AST (17-59) U/L ALT (0-50) U/L Alkaline Phosphatase (38-126) U/L Troponin I (0.000-0.034) ng/mL Serum Total Protein (6.3-8.2) g/dL Albumin (3.5-5.0) g/dL Amylase 98 (30-110) U/L Lipase 376 H (23-300) U/L Urine Color YELLOW (YELLOW) Urine Appearance CLEAR (CLEAR) Urine pH 5.0 (5-6) Ur Specific [place] 1.028 (1.005-1.025) Urine Protein NEGATIVE (Negative) Urine Ketones NEGATIVE (NEGATIVE) Urine Blood NEGATIVE (0-5) Carlos/ul Urine Nitrite NEGATIVE (NEGATIVE) Urine Bilirubin NEGATIVE (NEGATIVE) Urine Urobilinogen NEGATIVE (0-1) mg/dL Ur Leukocyte Esterase NEGATIVE (NEGATIVE) Urine WBC (Auto) NONE (0-5) /HPF Urine RBC (Auto) 3-5 (0-2) /HPF U Epithel Cells (Auto) NONE (FEW) /HPF Urine Bacteria (Auto) NONE (NEGATIVE) /HPF Urine Mucus (Auto) SLIGHT (NEGATIVE) /HPF Urine Culture Reflexed ORDERED SEPARATELY (NO) Urine Glucose >=500 (NEGATIVE) mg/dL 08/04/19 08/04/19 08/04/19 Range/Units 21:02 23:29 Unknown WBC (4.0-10.5) K/mm3 RBC (4.1-5.6) M/mm3 Hgb (12.5-18.0) gm/dl Hct (42-50) % MCV (78-100) fl MCH (26-32) pg MCHC (32-36) g/dl RDW (11.5-14.0) % Plt Count (150-450) K/mm3 MPV (6-9.5) fl Gran % (36.0-66.0) % Eos # (Auto) (0-0.5) Absolute Lymphs (auto) (1.0-4.6) Absolute Monos (auto) (0.0-1.3) Lymphocytes % (24.0-44.0) % Monocytes % (0.0-12.0) % Eosinophils % (0.00-5.0) % Basophils % (0.0-0.4) % Absolute Granulocytes (1.4-6.9) Basophils # (0-0.4) PT (8.83-12.87) SECONDS INR (0.8-3.0) APTT (24.1-36.1) SECONDS Sodium (137-145) mmol/L Potassium (3.5-5.1) mmol/L Chloride (98-107) mmol/L Carbon Dioxide (22-30) mmol/L Anion Gap (5-15) MEQ/L BUN (9-20) mg/dL Creatinine (0.66-1.25) mg/dL Estimated GFR ML/MIN Glucose (74-106) mg/dL Lactic Acid (0.4-2.0) Calcium (8.4-10.2) mg/dL Total Bilirubin (0.2-1.3) mg/dL AST (17-59) U/L ALT (0-50) U/L Alkaline Phosphatase (38-126) U/L Troponin I < 0.012 < 0.012 < 0.012 (0.000-0.034) ng/mL Serum Total Protein (6.3-8.2) g/dL Albumin (3.5-5.0) g/dL Amylase (30-110) U/L Lipase (23-300) U/L Urine Color (YELLOW) Urine Appearance (CLEAR) Urine pH (5-6) Ur Specific [place] (1.005-1.025) Urine Protein (Negative) Urine Ketones (NEGATIVE) Urine Blood (0-5) Carlos/ul Urine Nitrite (NEGATIVE) Urine Bilirubin (NEGATIVE) Urine Urobilinogen (0-1) mg/dL Ur Leukocyte Esterase (NEGATIVE) Urine WBC (Auto) (0-5) /HPF Urine RBC (Auto) (0-2) /HPF U Epithel Cells (Auto) (FEW) /HPF Urine Bacteria (Auto) (NEGATIVE) /HPF Urine Mucus (Auto) (NEGATIVE) /HPF Urine Culture Reflexed (NO) Urine Glucose (NEGATIVE) mg/dL 08/05/19 08/05/19 08/05/19 Range/Units 03:08 03:08 03:08 WBC 6.5 (4.0-10.5) K/mm3 RBC 4.82 (4.1-5.6) M/mm3 Hgb 12.3 L (12.5-18.0) gm/dl Hct 38.1 L (42-50) % MCV 79.0 (78-100) fl MCH 25.5 L (26-32) pg MCHC 32.3 (32-36) g/dl RDW 14.8 H (11.5-14.0) % Plt Count 264 (150-450) K/mm3 MPV 9.6 H (6-9.5) fl Gran % 59.8 (36.0-66.0) % Eos # (Auto) 0.13 (0-0.5) Absolute Lymphs (auto) 1.93 (1.0-4.6) Absolute Monos (auto) 0.52 (0.0-1.3) Lymphocytes % 29.7 (24.0-44.0) % Monocytes % 8.0 (0.0-12.0) % Eosinophils % 2.0 (0.00-5.0) % Basophils % 0.5 (0.0-0.4) % Absolute Granulocytes 3.89 (1.4-6.9) Basophils # 0.03 (0-0.4) PT (8.83-12.87) SECONDS INR (0.8-3.0) APTT (24.1-36.1) SECONDS Sodium 143 (137-145) mmol/L Potassium 3.8 D (3.5-5.1) mmol/L Chloride 109 H (98-107) mmol/L Carbon Dioxide 23 (22-30) mmol/L Anion Gap 14.9 (5-15) MEQ/L BUN 14 (9-20) mg/dL Creatinine 0.71 (0.66-1.25) mg/dL Estimated GFR > 60.0 ML/MIN Glucose 94 (74-106) mg/dL Lactic Acid (0.4-2.0) Calcium 9.0 (8.4-10.2) mg/dL Total Bilirubin (0.2-1.3) mg/dL AST (17-59) U/L ALT (0-50) U/L Alkaline Phosphatase (38-126) U/L Troponin I (0.000-0.034) ng/mL Serum Total Protein (6.3-8.2) g/dL Albumin (3.5-5.0) g/dL Amylase (30-110) U/L Lipase 420 H (23-300) U/L Urine Color (YELLOW) Urine Appearance (CLEAR) Urine pH (5-6) Ur Specific [place] (1.005-1.025) Urine Protein (Negative) Urine Ketones (NEGATIVE) Urine Blood (0-5) Carlos/ul Urine Nitrite (NEGATIVE) Urine Bilirubin (NEGATIVE) Urine Urobilinogen (0-1) mg/dL Ur Leukocyte Esterase (NEGATIVE) Urine WBC (Auto) (0-5) /HPF Urine RBC (Auto) (0-2) /HPF U Epithel Cells (Auto) (FEW) /HPF Urine Bacteria (Auto) (NEGATIVE) /HPF Urine Mucus (Auto) (NEGATIVE) /HPF Urine Culture Reflexed (NO) Urine Glucose (NEGATIVE) mg/dL 08/05/19 08/05/19 Range/Units 03:08 04:58 WBC (4.0-10.5) K/mm3 RBC (4.1-5.6) M/mm3 Hgb (12.5-18.0) gm/dl Hct (42-50) % MCV (78-100) fl MCH (26-32) pg MCHC (32-36) g/dl RDW (11.5-14.0) % Plt Count (150-450) K/mm3 MPV (6-9.5) fl Gran % (36.0-66.0) % Eos # (Auto) (0-0.5) Absolute Lymphs (auto) (1.0-4.6) Absolute Monos (auto) (0.0-1.3) Lymphocytes % (24.0-44.0) % Monocytes % (0.0-12.0) % Eosinophils % (0.00-5.0) % Basophils % (0.0-0.4) % Absolute Granulocytes (1.4-6.9) Basophils # (0-0.4) PT (8.83-12.87) SECONDS INR (0.8-3.0) APTT (24.1-36.1) SECONDS Sodium (137-145) mmol/L Potassium (3.5-5.1) mmol/L Chloride (98-107) mmol/L Carbon Dioxide (22-30) mmol/L Anion Gap (5-15) MEQ/L BUN (9-20) mg/dL Creatinine (0.66-1.25) mg/dL Estimated GFR ML/MIN Glucose (74-106) mg/dL Lactic Acid (0.4-2.0) Calcium (8.4-10.2) mg/dL Total Bilirubin (0.2-1.3) mg/dL AST (17-59) U/L ALT (0-50) U/L Alkaline Phosphatase (38-126) U/L Troponin I 0.014 0.013 (0.000-0.034) ng/mL Serum Total Protein (6.3-8.2) g/dL Albumin (3.5-5.0) g/dL Amylase (30-110) U/L Lipase (23-300) U/L Urine Color (YELLOW) Urine Appearance (CLEAR) Urine pH (5-6) Ur Specific [place] (1.005-1.025) Urine Protein (Negative) Urine Ketones (NEGATIVE) Urine Blood (0-5) Carlos/ul Urine Nitrite (NEGATIVE) Urine Bilirubin (NEGATIVE) Urine Urobilinogen (0-1) mg/dL Ur Leukocyte Esterase (NEGATIVE) Urine WBC (Auto) (0-5) /HPF Urine RBC (Auto) (0-2) /HPF U Epithel Cells (Auto) (FEW) /HPF Urine Bacteria (Auto) (NEGATIVE) /HPF Urine Mucus (Auto) (NEGATIVE) /HPF Urine Culture Reflexed (NO) Urine Glucose (NEGATIVE) mg/dL Micro Results-Entire Visit: Microbiology 08/04/19 03:44 Urine Culture - Preliminary Clean Catch Midstream NO GROWTH TO DATE Accuchecks Date 08/05/19 Accucheck Value: 228 Accucheck Value: 64 Accucheck Value: 168 Accucheck Value: 283 - Radiology Exams Ordered Rad Exams-Entire Visit: Radiology Procedures Category Date Time Status CHEST 1 VIEW (PORTABLE) Stat Exams 08/04/19 15:03 Completed - Procedures and Test Procedures and Tests throughout Hospitalization: Therapy Orders & Screens 08/04/19 22:30 EKG ONCE Comment: Diagnosis: Chest Pain - Discharge Disposition: Home, Self-Care Condition: Good Prescriptions: New Omeprazole 40 mg PO DAILY #30 capsule. Continue Multivitamin [Multi-Vitamin Daily] 1 each PO DAILY Aspirin 81 mg PO DAILY Insulin Lispro [Humalog] 0 unit SQ UD Escitalopram Oxalate 10 mg [Lexapro 10 MG] 20 mg PO DAILY Gabapentin 600 mg PO TID Lisinopril 10 mg [Zestril 10 MG] 10 mg PO DAILY Atorvastatin Calcium 80 mg PO DAILY Amitriptyline HCl 25 mg [Elavil 25 mg] 25 mg PO BID Metformin HCl [Glucophage] 1,000 mg PO BID Insulin Glargine,Hum.rec.anlog [Toujeo Solostar] 80 units SQ HS Changed Metoprolol Tartrate 25 mg PO BID #0 Discontinued Atenolol 25 mg PO DAILY Enalapril Maleate 5 mg [Vasotec 5 MG] 0 mg PO DAILY Additional Instructions: take a bland diet, push fluids and take omeprazole as directed. return for new symptoms, pain or change in symptoms or condition. Follow up with: ARTURO BOB NP [NON-STAFF PHY W/O PRIVILEGES] - 1 Week COLLIN HINTON [CONSULTING PHYSICIAN] - 1 Week
[2019-08-05] MEDS ORDERED: Lopressor 25MG Tab PO SCH (10:00)
[2019-08-05] MEDS ORDERED: ECOTRIN 81 MG PO SCH (10:00)
[2019-08-05] MEDS ORDERED: NON-FORMULARY ITEM (Multivitamin [Multi-Vitamin Daily] 1 EACH) PO SCH (10:00)
[2019-08-05] MEDS ORDERED: ZOCOR 20MG PO SCH (10:00)
[2019-08-05] MEDS ORDERED: Lexapro 10 MG PO SCH (10:00)
[2019-08-05] MEDS ORDERED: Zestril 10 MG PO SCH (10:00)
[2019-08-05] MEDS ORDERED: ENOXAPARIN SODIUM SQ SCH (10:00)
[2019-08-05] MEDS ORDERED: THERAGRAN MULTIVITAMIN PO SCH (10:00)
[2019-08-05] MEDS ORDERED: NON-FORMULARY ITEM (Aspirin [Aspirin] 81 MG) PO SCH (10:00)
== END 2019-08-05 09:26 | disposition home or self-care (01) ==
LOC: ED 14:46 → MED SURG 18:40
PROVIDERS: ADMIT Family Medicine; ATTEND Family Medicine
DX: R07.9 Chest pain, unspecified (principal); I10 Essential (primary) hypertension; E11.9 Type 2 diabetes mellitus without complications; R53.81 Other malaise; R79.89 Other specified abnormal findings of blood chemistry; Z95.1 Presence of aortocoronary bypass graft; I25.2 Old myocardial infarction
CPT/HCPCS: 36000; 36415; 71045; 80048; 80053; 81001; 82150; 82962; 83605; 83690; 84484; 85025; 85610; 85730; 87040; 87086; 93005; 93041; 93268; 94760; 96374; 99284; 99285; A9270-GY; G0378

== ENCOUNTER 2022-07-13 20:51 | Emergency (ER) | payer MEDICARE ==
--- NOTE | 2022-07-13 21:41 | ERPHSYRPT ---
- History of Present Illness Source: patient Exam Limitations: no limitations Patient Subjective Stated Complaint: Had a low blood sugar episode last night and diarrhea. Has gotten progressively worse through the day. Now having shortness of breath, dry cough, tightness in chest with any type of activity Triage Nursing Assessment: Pt alert & oriented. Ambulated to room with a slow steady gait. Respirations easy. Pt appears slightly short of breath. Skin pink, warm, and dry. Lungs clear throughout Physician History: 67 yo wm w dyspnea x 1day which is worse w exertion. Pt has a dry cough/diarrhea but denies coryza/fever/N/V/melena/hematochezia. He has chest pain w deep inspiration. Pt has h/o CAD/IA/CABG/Stents/HTN/DM. Timing/Duration: yesterday Activities at Onset: rest Severity of Dyspnea-Max: moderate Severity of Dyspnea-Current: moderate Possible Cause: no prior episodes Modifying Factors: Improves With: activity Associated Symptoms: cough, chest pain/discomfort, weakness, painful breathing, No edema, No fever, No insomnia, No loss of appetite, No lightheadedness, No wheezing, No ankle swelling, No chills, No hemoptysis, No calf pain, No dizziness, No heaviness, No heart racing, No lightheadedness, No leg swelling, No muscle spasms feet, No muscle spasms hands, No productive cough, No sweating, No tightness, No tingling face, No tingling hands Allergies/Adverse Reactions: Sulfa (Sulfonamide Antibiotics) Allergy (Verified 08/04/19 15:07) Hives Home Medications: Aspirin 81 mg PO DAILY 12/28/14 [History] Insulin Lispro [Humalog] 0 unit SQ UD 12/28/14 [History] Amitriptyline HCl 25 mg [Amitriptyline 25 mg Tablet] 50 mg PO DAILY 08/04/19 [History] Atorvastatin Calcium 80 mg PO DAILY 08/04/19 [History] Escitalopram Oxalate [Lexapro] 20 mg PO DAILY 08/04/19 [History] Gabapentin 400 mg PO TID 08/04/19 [History] Lisinopril 10 mg [Zestril 10 MG] 10 mg PO DAILY 08/04/19 [History] Metformin HCl [Glucophage] 1,000 mg PO BID 08/04/19 [History] Amlodipine Besylate 5 mg [Norvasc 5 mg] 5 mg PO DAILY 07/13/22 [History] Aripiprazole 10 mg [Abilify 10 MG] 2 mg PO DAILY 07/13/22 [History] Cholecalciferol (Vitamin D3) [Vitamin D3] 50 mcg PO DAILY 07/13/22 [History] Fluticasone/Umeclidin/Vilanter [Trelegy Ellipta 100-62.5-25] 1 puff IH DAILY 07/13/22 [History] Furosemide 20 mg [Lasix 20 mg] 20 mg PO DAILY 07/13/22 [History] Hx Tetanus, Diphtheria Vaccination/Date Given: No Hx Influenza Vaccination/Date Given: No Hx Pneumococcal Vaccination/Date Given: Yes Travel Risk - International Travel Have you traveled outside of the country in past 3 weeks: No - Coronavirus Screening Are you exhibiting any of the following symptoms?: Yes Symptoms: Cough: New Onset, Shortness of Breath, Vomiting/Diarrhea, Headaches/Body Aches/Fatigue Close contact with a COVID-19 positive Pt in past 14-21 Days: Yes - Vaccine Status Have you recieved a Covid-19 vaccination: Yes 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: [employer] - Vaccination Dates Date of 2cond Vaccination (if applicable): 03/06 - Review of Systems Constitutional: No Symptoms, Malaise Eyes: No Symptoms Ears, Nose, & Throat: No Symptoms Respiratory: No Symptoms, Cough, Dyspnea on Exertion ([place]) Cardiac: No Symptoms, Chest Pain Abdominal/Gastrointestinal: No Symptoms, Diarrhea Genitourinary Symptoms: No Symptoms Musculoskeletal: No Symptoms Skin: No Symptoms Neurological: No Symptoms Psychological: No Symptoms Endocrine: No Symptoms Hematologic/Lymphatic: No Symptoms Immunological/Allergic: No Symptoms - Past Medical History Pertinent Past Medical History: Yes Neurological History: No Pertinent History Cardiac History: Congestive Heart Failure, Hypertension, Myocardial Infarction (IA) Respiratory History: Sleep Apnea Endocrine Medical History: Diabetes Type II Musculoskeletal History: No Pertinent History GI Medical History: No Pertinent History History: No Pertinent History Psycho-Social History: Anxiety, Depression Male Reproductive Disorders: No Pertinent History - Past Surgical History Past Surgical History: Yes Neuro Surgical History: No Pertinent History Cardiac: CABG, Cardiac Catheterization, Cardiac Stent Respiratory: No Pertinent History Gastrointestinal: No Pertinent History Genitourinary: No Pertinent History Musculoskeletal: No Pertinent History Male Surgical History: No Pertinent History - Social History Smoking Status: Never smoker Exposure to second hand smoke: No Drug Use: none Patient Lives Alone: No Significant Family History: no pertinent family hx - Nursing Vital Signs Nursing Vital Signs: Initial Vital Signs Pulse Rate 86 07/13/22 20:52 Respiratory Rate 20 07/13/22 20:52 Blood Pressure 126/91 07/13/22 20:52 O2 Sat by Pulse Oximetry 88 L 07/13/22 20:52 Pain Scale Pain Intensity 6 Low sats - Physical Exam General Appearance: mild distress Eye Exam: PERRL/EOMI, eyes nml inspection Ears, Nose, Throat Exam: hearing grossly normal, normal ENT inspection, normal pharynx, No abnormal TM (R), No abnormal TM (L) Neck Exam: normal inspection, non-tender, supple, full range of motion, No Brudzinski, No Kernig's, No meningismus, No carotid bruit, No JVD Respiratory Exam: respiratory distress (Mild-low sats), airway intact, diminished breath sounds (B bases) Cardiovascular/Chest Exam: normal heart sounds, regular rate/rhythm, normal peripheral pulses, No murmur Abdominal/Gastrointestinal Exam: soft, normal bowel sounds, No tenderness Extremity Exam: non-tender, normal range of motion, normal inspection, normal capillary refill, No no calf tenderness Peripheral Pulses Exam: carotid (R): 2+, carotid (L): 2+ Neurologic Exam: alert, oriented x 3, cooperative, 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, normal mood/affect, nml cerebellar function, nml station & gait, sensation nml, No motor deficits, No sensory deficit Skin Exam: normal color, warm, dry Lymphatic Exam: No adenopathy SpO2 Interpretation: borderline oxygenation SpO2: 92 O2 Delivery: Nasal Cannula - Course Nursing assessment & vital signs reviewed: Yes EKG Interpreted by Me: RATE (NSR/Rate86/IVCD/Prolonged QTc/LAFB/Poor Rwave pr ogression) - Radiology Exams Chest X-ray Interpretation: Interpreted by me (Cardiomegaly wo failure or infiltrate/Post-surgical chest) - CT Exams Chest CT Interpretation: Tele-radiologist Report (Tele-rad called multiple B PE) Ordered Tests: Active Orders 24 hr Category Date Time Status EKG-ER Only STAT Care 07/13/22 21:34 Completed CHEST 1 VIEW (PORTABLE) Stat Exams 07/13/22 21:34 Taken CHEST WITH CONTRAST [CT] Stat Exams 07/13/22 23:29 Taken CBC W DIFF Stat Lab 07/13/22 21:49 Completed CMP Stat Lab 07/13/22 21:49 Completed D-DIMER QUANTITATIVE Stat Lab 07/13/22 22:00 Completed Lactic Acid Stat Lab 07/13/22 21:34 Completed Lactic Acid Stat Lab 07/13/22 23:44 Completed NT PRO BNP Stat Lab 07/13/22 21:49 Completed PROTIME WITH INR Stat Lab 07/13/22 21:49 Completed PTT Stat Lab 07/13/22 21:49 Completed TROPONIN Q4H Lab 07/13/22 21:49 Completed TROPONIN Q4H Lab 07/14/22 00:40 Completed TROPONIN Q4H Lab 07/14/22 05:45 Ordered Medication Summary Discontinued Medications Generic Name Dose Route Start Last Admin Trade Name Milton PRN Reason Stop Dose Admin Acetaminophen 1,000 mg 07/14/22 03:27 07/14/22 03:30 Acetaminophen 500 Mg Tablet PO 07/14/22 03:28 1,000 mg STAT STA Administration Acetaminophen Confirm 07/14/22 03:29 Acetaminophen 500 Mg Tablet Administered 07/14/22 03:30 Dose 1,000 mg .ROUTE .STK-MED ONE Aspirin 324 mg 07/13/22 23:07 07/13/22 23:17 Aspirin 81 Mg Tab.Chew PO 07/13/22 23:08 324 mg STAT ONE Administration Heparin Sodium (Beef Lung) 5,000 unit 07/14/22 00:50 07/14/22 00:58 Heparin 5000 Unit/0.5 Ml Syringe IV 07/14/22 00:51 5,000 unit STAT ONE Administration Heparin Sodium (Beef Lung) Confirm 07/14/22 00:54 Heparin 5000 Unit/0.5 Ml Syringe Administered 07/14/22 00:55 Dose 5,000 unit .ROUTE .STK-MED ONE Heparin Sodium/Dextrose 25,000 units in 250 mls @ 10 mls/hr 07/14/22 01:00 07/14/22 00:59 Heparin 25,000 Units/D5w 250ml Premix IV 08/13/22 00:59 10 mls/hr .Q24H CARRI 10 mls/hr Administration Heparin Sodium/Dextrose Confirm 07/14/22 00:55 Heparin 25,000 Units/D5w 250ml Premix Administered 07/14/22 00:56 Dose 25,000 units in 250 mls @ ud IV .K-MED ONE Lab/Rad Data: Laboratory Result Diagrams 07/13/22 21:49 07/13/22 21:49 Laboratory Results 07/14/22 07/13/22 07/13/22 Range/Units 00:40 23:44 22:05 WBC (4.0-10.5) x10^3/uL RBC (4.1-5.6) x10^6/uL Hgb (12.5-18.0) g/dL Hct (42-50) % MCV (78-100) fL MCH (26-32) pg MCHC (32-36) g/dL RDW (11.5-14.0) % Plt Count (150-450) x10^3/uL MPV (7.5-11.0) fL Gran % (36.0-66.0) % Immature Gran % (Auto) (0.00-0.4) % Nucleat RBC Rel Count (0.00-0.1) % Eos # (Auto) (0-0.5) x10^3/uL Immature Gran # (Auto) (0.00-0.03) x10^3u/L Absolute Lymphs (auto) (1.0-4.6) x10^3/uL Absolute Monos (auto) (0.0-1.3) x10^3/uL Absolute Nucleated RBC (0.00-0.01) x10^3u/L Lymphocytes % (24.0-44.0) % Monocytes % (0.0-12.0) % Eosinophils % (0.00-5.0) % Basophils % (0.0-0.4) % Absolute Granulocytes (1.4-6.9) x10^3/uL Basophils # (0-0.4) x10^3/uL PT (9.4-12.5) SECONDS INR (0.8-3.0) APTT (25.1-36.5) SECONDS D-Dimer (0.0-0.50) mg/L Sodium (137-145) mmol/L Potassium (3.5-5.1) mmol/L Chloride (98-107) mmol/L Carbon Dioxide (22-30) mmol/L Anion Gap (5-15) MEQ/L BUN (9-20) mg/dL Creatinine (0.66-1.25) mg/dL Estimated GFR ML/MIN Glucose (74-106) mg/dL Lactic Acid 1.0 (0.4-2.0) Calcium (8.4-10.2) mg/dL Total Bilirubin (0.2-1.3) mg/dL AST (17-59) U/L ALT (0-50) U/L Alkaline Phosphatase (38-126) U/L Troponin I 0.084 H* (0.000-0.034) ng/mL NT-Pro-B Natriuret Pep (0-900) pg/mL Serum Total Protein (6.3-8.2) g/dL Albumin (3.5-5.0) g/dL Influenza Type A Ag NEGATIVE (NEGATIVE) Influenza Type B Ag NEGATIVE (NEGATIVE) RSV (PCR) NEGATIVE (Negative) SARS-CoV-2 (PCR) NEGATIVE (NEGATIVE) 07/13/22 07/13/22 07/13/22 Range/Units 22:00 21:49 21:49 WBC (4.0-10.5) x10^3/uL RBC (4.1-5.6) x10^6/uL Hgb (12.5-18.0) g/dL Hct (42-50) % MCV (78-100) fL MCH (26-32) pg MCHC (32-36) g/dL RDW (11.5-14.0) % Plt Count (150-450) x10^3/uL MPV (7.5-11.0) fL Gran % (36.0-66.0) % Immature Gran % (Auto) (0.00-0.4) % Nucleat RBC Rel Count (0.00-0.1) % Eos # (Auto) (0-0.5) x10^3/uL Immature Gran # (Auto) (0.00-0.03) x10^3u/L Absolute Lymphs (auto) (1.0-4.6) x10^3/uL Absolute Monos (auto) (0.0-1.3) x10^3/uL Absolute Nucleated RBC (0.00-0.01) x10^3u/L Lymphocytes % (24.0-44.0) % Monocytes % (0.0-12.0) % Eosinophils % (0.00-5.0) % Basophils % (0.0-0.4) % Absolute Granulocytes (1.4-6.9) x10^3/uL Basophils # (0-0.4) x10^3/uL PT 10.2 (9.4-12.5) SECONDS INR 0.96 (0.8-3.0) APTT 22.6 L (25.1-36.5) SECONDS D-Dimer 4.12 H* (0.0-0.50) mg/L Sodium (137-145) mmol/L Potassium (3.5-5.1) mmol/L Chloride (98-107) mmol/L Carbon Dioxide (22-30) mmol/L Anion Gap (5-15) MEQ/L BUN (9-20) mg/dL Creatinine (0.66-1.25) mg/dL Estimated GFR ML/MIN Glucose (74-106) mg/dL Lactic Acid (0.4-2.0) Calcium (8.4-10.2) mg/dL Total Bilirubin (0.2-1.3) mg/dL AST (17-59) U/L ALT (0-50) U/L Alkaline Phosphatase (38-126) U/L Troponin I 0.064 H* (0.000-0.034) ng/mL NT-Pro-B Natriuret Pep (0-900) pg/mL Serum Total Protein (6.3-8.2) g/dL Albumin (3.5-5.0) g/dL Influenza Type A Ag (NEGATIVE) Influenza Type B Ag (NEGATIVE) RSV (PCR) (Negative) SARS-CoV-2 (PCR) (NEGATIVE) 07/13/22 07/13/22 07/13/22 Range/Units 21:49 21:49 21:34 WBC 8.9 (4.0-10.5) x10^3/uL RBC 4.45 (4.1-5.6) x10^6/uL Hgb 12.0 L (12.5-18.0) g/dL Hct 37.9 L (42-50) % MCV 85.2 (78-100) fL MCH 27.0 (26-32) pg MCHC 31.7 L (32-36) g/dL RDW 13.3 (11.5-14.0) % Plt Count 255 (150-450) x10^3/uL MPV 9.3 (7.5-11.0) fL Gran % 75.4 H (36.0-66.0) % Immature Gran % (Auto) 0.2 (0.00-0.4) % Nucleat RBC Rel Count 0.0 (0.00-0.1) % Eos # (Auto) 0.14 (0-0.5) x10^3/uL Immature Gran # (Auto) 0.02 (0.00-0.03) x10^3u/L Absolute Lymphs (auto) 1.34 (1.0-4.6) x10^3/uL Absolute Monos (auto) 0.66 (0.0-1.3) x10^3/uL Absolute Nucleated RBC 0.00 (0.00-0.01) x10^3u/L Lymphocytes % 15.0 L (24.0-44.0) % Monocytes % 7.4 (0.0-12.0) % Eosinophils % 1.6 (0.00-5.0) % Basophils % 0.4 (0.0-0.4) % Absolute Granulocytes 6.73 (1.4-6.9) x10^3/uL Basophils # 0.04 (0-0.4) x10^3/uL PT (9.4-12.5) SECONDS INR (0.8-3.0) APTT (25.1-36.5) SECONDS D-Dimer (0.0-0.50) mg/L Sodium 138 (137-145) mmol/L Potassium 4.6 (3.5-5.1) mmol/L Chloride 104 (98-107) mmol/L Carbon Dioxide 25 (22-30) mmol/L Anion Gap 14.6 (5-15) MEQ/L BUN 24 H (9-20) mg/dL Creatinine 1.43 H (0.66-1.25) mg/dL Estimated GFR 52.4 ML/MIN Glucose 114 H (74-106) mg/dL Lactic Acid 2.5 H (0.4-2.0) Calcium 9.1 (8.4-10.2) mg/dL Total Bilirubin 0.40 (0.2-1.3) mg/dL AST 36 (17-59) U/L ALT 19 (0-50) U/L Alkaline Phosphatase 67 (38-126) U/L Troponin I (0.000-0.034) ng/mL NT-Pro-B Natriuret Pep 1590 H (0-900) pg/mL Serum Total Protein 7.7 (6.3-8.2) g/dL Albumin 4.3 (3.5-5.0) g/dL Influenza Type A Ag (NEGATIVE) Influenza Type B Ag (NEGATIVE) RSV (PCR) (Negative) SARS-CoV-2 (PCR) (NEGATIVE) - Progress Progress: improved Progress Note: 07/14/22 01:21 5000 units IV Heparin bolus Heparin drip 1000units per hour 324 ASA po chewable 07/14/22 01:24 Pt's room air sat 88%, which improved to mid 90's w 2L O2 NC 07/14/22 02:[address] del toro at [facility] 07/14/22 03:55 Pt in stable condition upon transfer Counseled pt/family regarding: lab results, diagnosis, need for follow-up, rad results - Departure Departure Disposition: Transfer Clinical Impression: Pulmonary emboli, Elevated troponin Condition: Stable Critical Care Time: Yes Critical Care Time(excluding separately billable procedures): Critical 30-74 mins Referrals: ARTURO BOB NP [Primary Care Provider] - Follow up/PCP as directed
[2022-07-13 22:02] LABS: INR 0.96 (0.8-3.0); PROTIME 10.2 SECONDS (9.4-12.5); PTT 22.6 SECONDS (25.1-36.5)
[2022-07-13 22:06] LABS: Absolute Neutrophil Ct (ANC) 6.73 x10^3/uL (1.4-6.9); Basophil (Absolute #) 0.04 x10^3/uL (0-0.4); Eosinophil % 1.6 % (0.00-5.0); Eosinophil (Absolute #) 0.14 x10^3/uL (0-0.5); Hematocrit 37.9 % (42-50); Lymphocyte (Absolute #) 1.34 x10^3/uL (1.0-4.6); Mean Cell Volume 85.2 fL (78-100); Mean Corpuscular Hgb Concent. 31.7 g/dL (32-36); Mean Platelet Volume 9.3 fL (7.5-11.0); Monocyte (Absolute #) 0.66 x10^3/uL (0.0-1.3); Monocytes % 7.4 % (0.0-12.0); Neutrophil % 75.4 % (36.0-66.0); Platelet Count 255 x10^3/uL (150-450); Red Blood Count 4.45 x10^6/uL (4.1-5.6); Red Cell Distribution Width 13.3 % (11.5-14.0); White Blood Count 8.9 x10^3/uL (4.0-10.5)
[2022-07-13 22:08] LABS: ALBUMIN 4.3 g/dL (3.5-5.0); ANION GAP 14.6 MEQ/L (5-15); BILIRUBIN,TOTAL 0.4 mg/dL (0.2-1.3); Calcium 9.1 mg/dL (8.4-10.2); Creatinine 1 1.43 mg/dL (0.66-1.25); EST GLOMERULAR FILTRATION RATE 52.4 ML/MIN; Potassium 4.6 mmol/L (3.5-5.1); Total Protein 7.7 g/dL (6.3-8.2)
[2022-07-13 22:44] LABS: INFLUENZA A NEGATIVE (NEGATIVE); INFLUENZA B NEGATIVE (NEGATIVE); RESPIRATORY SYNCTIAL VIRUS NEGATIVE (Negative); SARS-CoV-2 Xpert Express NEGATIVE (NEGATIVE)
[2022-07-13] MEDS ORDERED: BABY ASPIRIN 81 MG CHEW PO ONE (23:07)
[2022-07-14] MEDS ORDERED: Heparin 5000 UNITS/0.5 ML (HIGH RISK MED) IV ONE (00:50)
[2022-07-14] MEDS ORDERED: Heparin 5000 UNITS/0.5 ML (HIGH RISK MED) ONE (00:54)
[2022-07-14] MEDS ORDERED: Heparin 25,000 units/D5W 250ML PREMIX 25,000 UNITS/250 ML BAG IV ONE (00:55)
[2022-07-14] MEDS ORDERED: Heparin 25,000 units/D5W 250ML PREMIX 25,000 UNITS/250 ML BAG IV SCH (01:00)
[2022-07-14 01:25] VITALS: O2SAT 92
[2022-07-14 03:16] VITALS: BP 171/92; PULSE 85
[2022-07-14] MEDS ORDERED: TYLENOL EXTRA STRENGTH 500 MG PO STA (03:27)
[2022-07-14] MEDS ORDERED: TYLENOL EXTRA STRENGTH 500 MG ONE (03:29)
--- NOTE | 2022-07-14 08:58 | XRAY ---
Indication: Chest pain and dyspnea. Elevated d-dimer. Multiple contiguous axial images obtained through the chest using 100 cc Isovue 370 contrast and PE protocol. Comparison: None Good opacification of the pulmonary arteries to includes the lobar and segmental branches. Nonoccluding pulmonary emboli seen in distal right main pulmonary artery extending into all lobar and majority segmental branches. Additional nonoccluding pulmonary emboli seen in left lung lobar and segmental branches. Heart borderline enlarged with CABG. Aorta mildly arteriosclerotic without aneurysm/dissection. No pathologic mediastinal/hilar lymphadenopathy. Lungs inflated and clear. Bony thorax intact with flowing osteophytes throughout the spine. Limited upper abdomen demonstrates fatty liver and numerous tiny hepatic/splenic calcified granulomas. Impression: 1. Extensive diffuse bilateral nonoccluding pulmonary emboli. No distal pulmonary infarct. 2. Incidental borderline cardiomegaly with CABG, arteriosclerotic disease, chronic bony findings, fatty liver, and old granulomatous disease. Comment: Preliminary interpretation made by C. No critical discrepancy.
--- NOTE | 2022-07-14 08:58 | XRAY ---
Indication: Dyspnea. Comparison: August 04, 2019 Portable apical lordotic chest again demonstrates cardiomegaly with CABG. Lungs inflated and clear. Bony thorax intact again with mild osteopenia and degenerative changes. No new/acute findings.
== END 2022-07-14 03:46 | disposition short-term general hospital (02) ==
LOC: ED 20:51
DX: I26.99 Other pulmonary embolism without acute cor pulmonale (principal); R77.8 Other specified abnormalities of plasma proteins; R06.00 Dyspnea, unspecified; R05.9 Cough, unspecified; R19.7 Diarrhea, unspecified; R07.9 Chest pain, unspecified; I11.0 Hypertensive heart disease with heart failure; I50.9 Heart failure, unspecified; E11.9 Type 2 diabetes mellitus without complications; Z79.4 Long term (current) use of insulin; Z79.84 Long term (current) use of oral hypoglycemic drugs; Z79.899 Other long term (current) drug therapy; Z20.828 Contact with and (suspected) exposure to other viral communicable diseases
CPT/HCPCS: 0241U; 36415; 71045; 71260; 80053; 83605; 83880; 84484; 85025; 85379; 85610; 85730; 93005; 96374; 99285; 99291; J1644; A9270-GY

== ENCOUNTER 2024-01-28 05:56 | Day surgery (SDC) | payer MEDICARE ==
[2024-01-28 06:52] VITALS: RESP 16
[2024-01-28] MEDS: Lactated Ringers 1,000 ML IV SCH (06:53)
[2024-01-28] MEDS ORDERED: DIPRIVAN 200 MG/20 ML IV ONE (08:02)
[2024-01-28] MEDS ORDERED: Xylocaine-Mpf 2% 5 Ml Vial ONE (08:04)
[2024-01-28 09:10] VITALS: PULSE 75; TEMP 97
[2024-01-28 09:20] VITALS: BP 131/82; O2SAT 98
--- NOTE | 2024-01-28 14:11 | OP ---
SURGERY DATE/TIME: 01/28/2024 0810 PREOPERATIVE DIAGNOSIS: Screening colonoscopy. POSTOPERATIVE DIAGNOSES: 1) Normal exam. 2) Poor bowel prep. PROCEDURE: Colonoscopy. SURGEON: Nick Steen M.D. ANESTHESIA: MAC by Leander Perez CRNA. ESTIMATED BLOOD LOSS: None. SPECIMENS: None. DESCRIPTION OF PROCEDURE: After informed written consent was obtained, the patient was taken to the endoscopy suite. He was placed in left lateral decubitus position and anesthesia was titrated to desired level of consciousness. Digital rectal exam showed normal sphincter tone and no internal lesions. The scope was inserted into the rectum and sequentially the entire colonic mucosa was traversed. The level of cecum was reached and verified with direct visualization of the ileocecal valve. The entire length of the colon had a suboptimal prep with semisolid and liquid stool present throughout intermittent areas of the entire colon obscuring view of substantial portion of the colon. Exam was suboptimal but felt to be adequate. There were no obvious large polypoid lesions or abnormalities. I did discuss with the patient and his afterwards that there is possible risk of missing small lesions. Retroflexion was performed prior to withdrawal and there were no obvious lesions. The scope was removed and the patient was transferred to the recovery room in good condition. I recommended possible closure interval follow up than standard due to poor bowel prep and consider rescreening in the next five years.
== END 2024-01-28 09:29 | disposition home or self-care (01) ==
LOC: SDC 05:56
PROVIDERS: ATTEND Family Medicine
DX: Z12.11 Encounter for screening for malignant neoplasm of colon (principal); E11.9 Type 2 diabetes mellitus without complications
CPT/HCPCS: 82947; 93005; J2704

== ENCOUNTER 2024-02-19 11:33 | Observation (INO) | payer MEDICARE ==
[2024-02-19] MEDS: BABY ASPIRIN 81 MG CHEW PO ONE (11:55)
[2024-02-19] MEDS ORDERED: BABY ASPIRIN 81 MG CHEW ONE (11:55)
[2024-02-19 12:03] LABS: BASOPHIL % 0.6 % (0.0-0.4); Basophil (Absolute #) 0.03 x10^3/uL (0-0.4); Eosinophil % 2.3 % (0.00-5.0); Eosinophil (Absolute #) 0.12 x10^3/uL (0-0.5); Hematocrit 42.5 % (42-50); IMMATURE GRAN # 0.01 x10^3u/L (0.00-0.03); IMMATURE GRAN % 0.2 % (0.00-0.4); Lymphocyte (Absolute #) 1.07 x10^3/uL (1.0-4.6); Lymphocytes % 20.2 % (24.0-44.0); Mean Cell Volume 81.1 fL (78-100); Mean Corpuscular Hemoglobin 24.8 pg (26-32); Mean Corpuscular Hgb Concent. 30.6 g/dL (32-36); Mean Platelet Volume 8.6 fL (7.5-11.0); Monocyte (Absolute #) 0.37 x10^3/uL (0.0-1.3); Neutrophil % 69.7 % (36.0-66.0); Platelet Count 373 x10^3/uL (150-450); Red Blood Count 5.24 x10^6/uL (4.1-5.6); Red Cell Distribution Width 16.1 % (11.5-14.0); White Blood Count 5.3 x10^3/uL (4.0-10.5)
--- NOTE | 2024-02-19 12:11 | ERPHSYRPT ---
- History of Present Illness Time Seen by Provider: 02/19/24 11:43 Source: patient Exam Limitations: no limitations Patient Subjective Stated Complaint: Pt states "I have been short of breath for the past couple of days. I had blood clots a couple years ago in my lungs but now I do not feel well." Triage Nursing Assessment: Pt presented alert and oriented x 3, skin pwd. PT ambulates with an upright steady gait, able to speak in clear full sentences. PT resting comfortably on the bed. Physician History: Patient is here with shortness of breath for 2 to 3 days. Does have a history of CABG, hypertension, pulmonary embolism. He is not currently on any anticoagulants. He is only on aspirin. States that he had moderate shortness of breath with exertion today while taking the garbage cans in. He has no actual chest pain today. No falls or trauma. Allergies/Adverse Reactions: Sulfa (Sulfonamide Antibiotics) Allergy (Verified 01/12/24 10:55) Hives Home Medications: Aspirin 81 mg PO DAILY 12/28/14 [History] Insulin Lispro [Humalog] 0 unit SQ UD 12/28/14 [History] Atorvastatin Calcium 80 mg PO DAILY 08/04/19 [History] Escitalopram Oxalate [Lexapro] 20 mg PO DAILY 08/04/19 [History] Gabapentin 400 mg PO TID 08/04/19 [History] Metformin HCl [Glucophage] 1,000 mg PO BID 08/04/19 [History] Dapagliflozin Propanediol [Farxiga] 10 mg PO UD 01/12/24 [History] Nitroglycerin 0.4 mg Tablet [Nitrostat 0.4 MG Tablet] 1 tab SL UD 01/12/24 [History] Hx Tetanus, Diphtheria Vaccination/Date Given: No Hx Influenza Vaccination/Date Given: Yes Hx Pneumococcal Vaccination/Date Given: Yes Immunizations Up to Date: Yes Travel Risk - International Travel Have you traveled outside of the country in past 3 weeks: No - Emerging Infectious Disease Symptoms: Cough: New Onset - Past Medical History Pertinent Past Medical History: Yes Neurological History: No Pertinent History Cardiac History: Congestive Heart Failure, Coronary Artery Disease, Deep Vein Thrombosis, Hypertension, Myocardial Infarction ([place]) Respiratory History: Sleep Apnea Endocrine Medical History: Diabetes Type II Musculoskeletal History: No Pertinent History GI Medical History: No Pertinent History History: No Pertinent History Psycho-Social History: Anxiety, Depression Male Reproductive Disorders: No Pertinent History Other Medical History: uses cpap, - Past Surgical History Past Surgical History: Yes Neuro Surgical History: No Pertinent History Cardiac: CABG, Cardiac Catheterization, Cardiac Stent Respiratory: No Pertinent History Gastrointestinal: No Pertinent History Genitourinary: No Pertinent History Musculoskeletal: No Pertinent History Male Surgical History: No Pertinent History Other Surgical History: bypass surgery 8 years ago Significant Family History: no pertinent family hx - Social History Smoking Status: Never smoker Exposure to second hand smoke: No Drug Use: none Patient Lives Alone: No - Nursing Vital Signs Nursing Vital Signs: Initial Vital Signs Temperature 97.1 F 02/19/24 11:34 Pulse Rate 86 02/19/24 11:34 Respiratory Rate 20 02/19/24 11:34 Blood Pressure 145/96 02/19/24 11:34 O2 Sat by Pulse Oximetry 97 02/19/24 11:34 Pain Scale Pain Intensity 0 - Physical Exam SpO2 Interpretation: normal SpO2: 96 Comments: 02/19/24 12:09 Review of Systems Constitutional: Negative for fever. HENT: Negative for congestion. Respiratory: Shortness of breath Cardiovascular: Negative for chest pain. Gastrointestinal: Negative for abdominal pain. Genitourinary: Negative for dysuria. Musculoskeletal: Negative for back pain. Skin: Negative for rash. Neurological: Negative for headaches. Psychiatric/Behavioral: Negative for behavioral problems. All other systems reviewed and are negative. Physical Exam Vitals signs and nursing note reviewed. Constitutional: Appearance: Patient is well-developed. HENT: Head: Normocephalic and atraumatic. Eyes: Conjunctiva/sclera: Conjunctivae normal. Neck: Musculoskeletal: Normal range of motion. Trachea: No tracheal deviation. Cardiovascular: Rate and Rhythm: Normal rate. Pulmonary: Effort: Pulmonary effort is normal. No respiratory distress. Abdominal: Palpations: Abdomen is soft. Musculoskeletal: General: No deformity. Skin: General: Skin is warm and dry. Neurological/ Psychiatric: Mental Status: Mental status, behavior, interaction with environment is appropriate for patient's age and condition - Course Nursing assessment & vital signs reviewed: Yes EKG Interpreted by Me: Sinus Rhythm (Sinus rhythm, rate of 85, MN interval 162, QRS 140, QTc is 412, sinus rhythm, left atrial enlargement, left bundle branch block) Ordered Tests: Active Orders 24 hr Category Date Time Status Hospital Librarian STAT Care 02/19/24 11:50 Completed EKG-ER Only STAT Care 02/19/24 11:50 Completed IV Insertion STAT Care 02/19/24 11:50 Completed House Regular Diet Diet 02/20/24 Breakfast Active CHEST 1 VIEW (PORTABLE) Stat Exams 02/19/24 11:50 Completed CHEST WITH CONTRAST [CT] Stat Exams 02/19/24 12:40 Completed CBC W DIFF Stat Lab 02/19/24 12:00 Completed CK-Creatinine Phosphokinase Stat Lab 02/19/24 12:00 Completed CMP Stat Lab 02/19/24 12:00 Completed D-DIMER QUANTITATIVE Stat Lab 02/19/24 12:00 Completed NT PRO BNPII Stat Lab 02/19/24 12:00 Completed TROPONIN Q4H Lab 02/19/24 12:00 Completed TROPONIN Q4H Lab 02/19/24 14:18 Completed TROPONIN Q4H Lab 02/19/24 20:00 Ordered Transfer Order Routine Transfer 02/19/24 Completed Medication Summary Discontinued Medications Generic Name Dose Route Start Last Admin Trade Name Erikq PRN Reason Stop Dose Admin Aspirin 324 mg 02/19/24 11:50 02/19/24 11:55 Aspirin 81 Mg Tab.Chew PO 02/19/24 11:51 324 mg STAT ONE Administration Aspirin Confirm 02/19/24 11:55 Aspirin 81 Mg Tab.Chew Administered 02/19/24 11:56 Dose 324 mg .ROUTE .STK-MED ONE Lab/Rad Data: Laboratory Result Diagrams 02/19/24 12:00 02/19/24 12:00 Laboratory Results 02/19/24 02/19/24 02/19/24 Range/Units 14:18 12:00 12:00 WBC (4.0-10.5) x10^3/uL RBC (4.1-5.6) x10^6/uL Hgb (12.5-18.0) g/dL Hct (42-50) % MCV (78-100) fL MCH (26-32) pg MCHC (32-36) g/dL RDW (11.5-14.0) % Plt Count (150-450) x10^3/uL MPV (7.5-11.0) fL Gran % (36.0-66.0) % Immature Gran % (Auto) (0.00-0.4) % Nucleat RBC Rel Count (0.00-0.1) % Eos # (Auto) (0-0.5) x10^3/uL Immature Gran # (Auto) (0.00-0.03) x10^3u/L Absolute Lymphs (auto) (1.0-4.6) x10^3/uL Absolute Monos (auto) (0.0-1.3) x10^3/uL Absolute Nucleated RBC (0.00-0.01) x10^3u/L Lymphocytes % (24.0-44.0) % Monocytes % (0.0-12.0) % Eosinophils % (0.00-5.0) % Basophils % (0.0-0.4) % Absolute Granulocytes (1.4-6.9) x10^3/uL Basophils # (0-0.4) x10^3/uL D-Dimer (0.0-0.50) mg/L Sodium (135-145) mmol/L Potassium (3.5-5.1) mmol/L Chloride (98-107) mmol/L Carbon Dioxide (22-30) mmol/L Anion Gap (5-15) MEQ/L BUN (9-20) mg/dL Creatinine (0.66-1.25) mg/dL Estimated GFR ML/MIN Glucose (74-106) mg/dL Calcium (8.4-10.2) mg/dL Total Bilirubin (0.2-1.3) mg/dL AST (17-59) U/L ALT (0-50) U/L Alkaline Phosphatase (38-126) U/L Creatine Kinase (55-170) U/L Troponin I 0.045 H* 0.056 H* (0.000-0.033) ng/mL NT-Pro-B Natriuret Pep (<300) pg/mL Serum Total Protein (6.3-8.2) g/dL Albumin (3.5-5.0) g/dL Influenza Type A Ag NEGATIVE (NEGATIVE) Influenza Type B Ag NEGATIVE (NEGATIVE) RSV (PCR) NEGATIVE (NEGATIVE) SARS-CoV-2 (PCR) NEGATIVE (NEGATIVE) 02/19/24 02/19/24 02/19/24 Range/Units 12:00 12:00 12:00 WBC 5.3 (4.0-10.5) x10^3/uL RBC 5.24 (4.1-5.6) x10^6/uL Hgb 13.0 (12.5-18.0) g/dL Hct 42.5 (42-50) % MCV 81.1 (78-100) fL MCH 24.8 L (26-32) pg MCHC 30.6 L (32-36) g/dL RDW 16.1 H (11.5-14.0) % Plt Count 373 (150-450) x10^3/uL MPV 8.6 (7.5-11.0) fL Gran % 69.7 H (36.0-66.0) % Immature Gran % (Auto) 0.2 (0.00-0.4) % Nucleat RBC Rel Count 0.0 (0.00-0.1) % Eos # (Auto) 0.12 (0-0.5) x10^3/uL Immature Gran # (Auto) 0.01 (0.00-0.03) x10^3u/L Absolute Lymphs (auto) 1.07 (1.0-4.6) x10^3/uL Absolute Monos (auto) 0.37 (0.0-1.3) x10^3/uL Absolute Nucleated RBC 0.00 (0.00-0.01) x10^3u/L Lymphocytes % 20.2 L (24.0-44.0) % Monocytes % 7.0 (0.0-12.0) % Eosinophils % 2.3 (0.00-5.0) % Basophils % 0.6 (0.0-0.4) % Absolute Granulocytes 3.70 (1.4-6.9) x10^3/uL Basophils # 0.03 (0-0.4) x10^3/uL D-Dimer 1.08 H* (0.0-0.50) mg/L Sodium 139 (135-145) mmol/L Potassium 4.6 (3.5-5.1) mmol/L Chloride 106 (98-107) mmol/L Carbon Dioxide 24 (22-30) mmol/L Anion Gap 13.2 (5-15) MEQ/L BUN 19 (9-20) mg/dL Creatinine 1.66 H (0.66-1.25) mg/dL Estimated GFR 44.6 ML/MIN Glucose 153 H (74-106) mg/dL Calcium 9.3 (8.4-10.2) mg/dL Total Bilirubin 0.60 (0.2-1.3) mg/dL AST 27 (17-59) U/L ALT 21 (0-50) U/L Alkaline Phosphatase 42 (38-126) U/L Creatine Kinase 37 L (55-170) U/L Troponin I (0.000-0.033) ng/mL NT-Pro-B Natriuret Pep 4880 (<300) pg/mL Serum Total Protein 7.8 (6.3-8.2) g/dL Albumin 4.0 (3.5-5.0) g/dL Influenza Type A Ag (NEGATIVE) Influenza Type B Ag (NEGATIVE) RSV (PCR) (NEGATIVE) SARS-CoV-2 (PCR) (NEGATIVE) - Progress Progress: improved Progress Note: 02/19/24 12:11 Differential diagnosis includes: PNA, STEMI, NSTEMI, other infection, musculoskeletal pain, pneumothorax, pulmonary embolism - We'll obtain basic labs, fluids, EKG, troponin, chest x-ray - EKG shows no ST changes - my read - O2 saturations consistently greater than 95%. - CXR shows volume overload 02/19/24 15:40 Elevated D-dimer. Therefore CTA obtained looking for pulmonary embolism. This did show acute CHF, volume overload. Most likely the source of patient's shortness of breath. Patient's initial troponin was 0.056. This was elevated compared to his baseline. Therefore we did check a 2-hour troponin. This was 0.045. EKG unchanged during this time. Patient had 2 EKGs that showed sinus rhythm, no ST changes, consistent left bundle branch block. Discussed over the phone with on-call admitting physician, Dr. Ling. Patient is satting above 95% consistently. No active chest pain. Less likely to be acute [place] today. Plan for admission to the hospital. Patient has feel comfortable with this plan. Unsure of last echocardiogram. Counseled pt/family regarding: lab results, diagnosis, need for follow-up, rad results - Departure Departure Disposition: Observation Clinical Impression: Acute exacerbation of CHF (congestive heart failure), Shortness of breath Condition: Stable Critical Care Time: No
--- NOTE | 2024-02-19 12:24 | XRAY ---
Indication: Chest pain. Comparison: July 13, 2022. Portable chest again demonstrates cardiomegaly with CABG. New pulmonary edema and small bibasilar effusions concerning for mild cardiac decompensation/CHF. Bony thorax intact again with osteopenia and mild degenerative changes.
[2024-02-19 12:25] LABS: ANION GAP 13.2 MEQ/L (5-15); BILIRUBIN,TOTAL 0.6 mg/dL (0.2-1.3); Calcium 9.3 mg/dL (8.4-10.2); Creatinine 1 1.66 mg/dL (0.66-1.25); EST GLOMERULAR FILTRATION RATE 44.6 ML/MIN; Potassium 4.6 mmol/L (3.5-5.1); Total Protein 7.8 g/dL (6.3-8.2)
[2024-02-19 12:47] LABS: INFLUENZA A NEGATIVE (NEGATIVE); INFLUENZA B NEGATIVE (NEGATIVE); RESPIRATORY SYNCTIAL VIRUS NEGATIVE (NEGATIVE); SARS-CoV-2 Xpert Express NEGATIVE (NEGATIVE)
[2024-02-19] MEDS ORDERED: HOLD METFORMIN PRODUCTS FOR 48 HOURS MC SCH (13:00)
--- NOTE | 2024-02-19 13:29 | XRAY ---
Indication: Pulmonary was. Multiple contiguous axial images obtained through the chest using 80 cc Isovue 370 contrast and PE protocol. Comparison: July 07, 2022 Good opacification of the pulmonary arteries to include the lobar and segmental branches. Previous bilateral pulmonary emboli has cleared. No pulmonary embolus. Heart now enlarged again with CABG. Aorta remains mildly arteriosclerotic without aneurysm/dissection. No pathologic mediastinal/hilar lymphadenopathy. Lungs demonstrates new moderate bilateral effusions, right greater than left with minimal bibasilar compressive atelectasis. Again incidental tiny right perihilar calcified granuloma. Bony thorax intact again with flowing osteophytes throughout spine and sternotomy wires. Limited upper abdomen again demonstrates 1.1 cm gallstone and numerous tiny hepatic/splenic calcified granulomas. Impression: 1. Negative pulmonary embolus. 2. New cardiomegaly with bilateral effusions favoring cardiac decompensation/CHF as reported on same-day chest radiograph. 3. Again chronic findings including CABG, arteriosclerotic disease, chronic bony findings, gallstone, and old granulomatous disease.
--- NOTE | 2024-02-19 15:39 | PCM.HP ---
<MACHELLE OWENS - Last Filed: 02/19/24 16:00> History of Present Illness - Chief Complaint Chief Complaint: CHF exacerbation Date: 02/19/24 History of Present Illness: is a 68 year old male pmhx of CHF, CAD, PE (2 years ago, > 1 year s priyank anticoagulation), [place], HTN, DM, JOSE (CPAP), and anxiety/depression who presented to ED 02/19/24 with complaints of progressive shortness of breath for the past two days. Patient reports that dyspnea is worse with exertion and while taking out the garbage cans he got light-headed and had to sit down to recover. He reports similar symptoms with previous PE which prompted him to come to ED. He states he has recently lost 30 pounds with diet and exercise and has been able to discontinue a lot of his home meds including all BP meds and lasix. No reported edema or chest pain. Denies fever,cough, cp, abdominal pain, ORDONEZ, N/V/D. In ED, patient hypertensive. Spo2 at 97% on RA. CT of chest negative for PE with findings of new cardiomegaly, bilateral effusions R>L favoring CHF. Lab findings remarkable for Ddimer of 1.08 (No PE on CT), Creat 1.66 (baseline around 1.4), and trop I at 0.045<0.056, and BNP at 4880. EKG with NS with left atrial enlargement, left bundle branch block. Patient received ASA in ED. - Review of Systems Constitutional: No Symptoms Eyes: No Symptoms Ears, Nose, & Throat: No Symptoms Respiratory: Short Of Breath Cardiac: No Symptoms Abdominal/Gastrointestinal: No Symptoms Genitourinary Symptoms: No Symptoms Musculoskeletal: No Symptoms Skin: No Symptoms Neurological: Dizziness Psychological: No Symptoms Endocrine: No Symptoms Hematologic/Lymphatic: No Symptoms Immunological/Allergic: No Symptoms Medications & Allergies Home Medications: Home Medication List Aspirin 81 mg PO DAILY 12/28/14 [History Confirmed 02/19/24] Insulin Lispro [Humalog] 0 unit SQ UD 12/28/14 [History Confirmed 02/19/24] Atorvastatin Calcium 80 mg PO DAILY 08/04/19 [History Confirmed 02/19/24] Escitalopram Oxalate [Lexapro] 20 mg PO DAILY 08/04/19 [History Confirmed 02/19/24] Gabapentin 400 mg PO BID 08/04/19 [History Confirmed 02/19/24] Metformin HCl [Glucophage] 1,000 mg PO BID 08/04/19 [History Confirmed 02/19/24] Dapagliflozin Propanediol [Farxiga] 10 mg PO DAILY 01/12/24 [History Confirmed 02/19/24] Nitroglycerin 0.4 mg Tablet [Nitrostat 0.4 MG Tablet] 1 tab SL UD 01/12/24 [History Confirmed 02/19/24] AMITRIPTYLINE HCL 50 mg Tab [AMITRIPTYLINE HCL 50 mg Tablet] 50 mg PO HS 02/19/24 [History Confirmed 02/19/24] Alpha Lipoic Acid 600 mg PO DAILY 02/19/24 [History Confirmed 02/19/24] Cyanocobalamin/Cobamamide [B-12 5,000 Mcg Sublingual Tab] 1 tab PO DAILY 02/19/24 [History Confirmed 02/19/24] Multivitamin [Multi-Vitamin Daily] 1 each PO DAILY 02/19/24 [History Confirmed 02/19/24] Allergies/Adverse Reactions: Allergies Allergy/AdvReac Type Severity Reaction Status Date / Time Sulfa (Sulfonamide Allergy Hives Verified 01/12/24 10:55 Antibiotics) - Past Medical History Past Medical History: Yes Neurological History: No Pertinent History Cardiac History: Congestive Heart Failure, Coronary Artery Disease, Deep Vein Th rombosis, Hypertension, Myocardial Infarction ([place]) Respiratory History: Sleep Apnea Endocrine Medical History: Diabetes Type II Musculoskelatal History: No Pertinent History GI Medical History: No Pertinent History History: No Pertinent History Pyscho-Social History: Anxiety, Depression Male Reproductive Disorders: No Pertinent History Comment: uses cpap, - Past Surgical History Past Surgical History: Yes Neuro Surgical History: No Pertinent History Cardiac History: CABG, Cardiac Catheterization, Cardiac Stent Respiratory Surgery: No Pertinent History GI Surgical History: No Pertinent History Genitourinary Surgical Hx: No Pertinent History Musculskeletal Surgical Hx: No Pertinent History Male Surgical History: No Pertinent History Other Surgical History: bypass surgery 8 years ago Significant Family History: no pertinent family hx - Social History Smoking Status: Never smoker Exposure to second hand smoke: No Alcohol: None Drug Use: none - Social Determinants of Health Will the patient participate in the screening: Yes Do you worry about a steady place to live?: No Do you have any problems with any of the following?: No known problems In the past 12 months,have you had to go without utilities?: No Have you or anyone in your house had to go without enough: No Transportation Issues: No Has anyone in your support network made you feel unsafe?: No - Physical Exam Vital Signs: Vital Signs - 24 hr Temp Pulse Resp BP BP Pulse Ox 02/19/24 15:01 92 H 19 156/95 97 02/19/24 14:30 90 16 148/91 95 02/19/24 14:00 90 22 146/95 94 L 02/19/24 13:30 89 15 146/100 95 02/19/24 13:17 91 H 16 169/102 96 02/19/24 13:00 86 19 139/86 97 02/19/24 12:30 85 15 146/88 94 L 02/19/24 12:11 96 02/19/24 12:01 84 15 149/82 96 02/19/24 11:36 85 20 145/96 96 02/19/24 11:34 97.1 F 86 20 145/96 98 General Appearance: no apparent distress Neurologic Exam: alert, oriented x 3, cooperative Eye Exam: PERRL/EOMI Ears, Nose, Throat Exam: normal ENT inspection Neck Exam: normal inspection Respiratory Exam: crackles/rales Cardiovascular Exam: regular rate/rhythm, normal heart sounds Gastrointestinal/Abdomen Exam: normal bowel sounds Rectal Exam: deferred Extremity Exam: normal inspection Skin Exam: normal color Results - Labs Lab/Micro Results: Lab Results-Last 24 Hours 02/19/24 02/19/24 02/19/24 Range/Units 12:00 12:00 12:00 WBC 5.3 (4.0-10.5) x10^3/uL RBC 5.24 (4.1-5.6) x10^6/uL Hgb 13.0 (12.5-18.0) g/dL Hct 42.5 (42-50) % MCV 81.1 (78-100) fL MCH 24.8 L (26-32) pg MCHC 30.6 L (32-36) g/dL RDW 16.1 H (11.5-14.0) % Plt Count 373 (150-450) x10^3/uL MPV 8.6 (7.5-11.0) fL Gran % 69.7 H (36.0-66.0) % Immature Gran % (Auto) 0.2 (0.00-0.4) % Nucleat RBC Rel Count 0.0 (0.00-0.1) % Eos # (Auto) 0.12 (0-0.5) x10^3/uL Immature Gran # (Auto) 0.01 (0.00-0.03) x10^3u/L Absolute Lymphs (auto) 1.07 (1.0-4.6) x10^3/uL Absolute Monos (auto) 0.37 (0.0-1.3) x10^3/uL Absolute Nucleated RBC 0.00 (0.00-0.01) x10^3u/L Lymphocytes % 20.2 L (24.0-44.0) % Monocytes % 7.0 (0.0-12.0) % Eosinophils % 2.3 (0.00-5.0) % Basophils % 0.6 (0.0-0.4) % Absolute Granulocytes 3.70 (1.4-6.9) x10^3/uL Basophils # 0.03 (0-0.4) x10^3/uL D-Dimer 1.08 H* (0.0-0.50) mg/L Sodium 139 (135-145) mmol/L Potassium 4.6 (3.5-5.1) mmol/L Chloride 106 (98-107) mmol/L Carbon Dioxide 24 (22-30) mmol/L Anion Gap 13.2 (5-15) MEQ/L BUN 19 (9-20) mg/dL Creatinine 1.66 H (0.66-1.25) mg/dL Estimated GFR 44.6 ML/MIN Glucose 153 H (74-106) mg/dL Calcium 9.3 (8.4-10.2) mg/dL Total Bilirubin 0.60 (0.2-1.3) mg/dL AST 27 (17-59) U/L ALT 21 (0-50) U/L Alkaline Phosphatase 42 (38-126) U/L Creatine Kinase 37 L (55-170) U/L Troponin I (0.000-0.033) ng/mL NT-Pro-B Natriuret Pep 4880 (<300) pg/mL Serum Total Protein 7.8 (6.3-8.2) g/dL Albumin 4.0 (3.5-5.0) g/dL Influenza Type A Ag (NEGATIVE) Influenza Type B Ag (NEGATIVE) RSV (PCR) (NEGATIVE) SARS-CoV-2 (PCR) (NEGATIVE) 02/19/24 02/19/24 02/19/24 Range/Units 12:00 12:00 14:18 WBC (4.0-10.5) x10^3/uL RBC (4.1-5.6) x10^6/uL Hgb (12.5-18.0) g/dL Hct (42-50) % MCV (78-100) fL MCH (26-32) pg MCHC (32-36) g/dL RDW (11.5-14.0) % Plt Count (150-450) x10^3/uL MPV (7.5-11.0) fL Gran % (36.0-66.0) % Immature Gran % (Auto) (0.00-0.4) % Nucleat RBC Rel Count (0.00-0.1) % Eos # (Auto) (0-0.5) x10^3/uL Immature Gran # (Auto) (0.00-0.03) x10^3u/L Absolute Lymphs (auto) (1.0-4.6) x10^3/uL Absolute Monos (auto) (0.0-1.3) x10^3/uL Absolute Nucleated RBC (0.00-0.01) x10^3u/L Lymphocytes % (24.0-44.0) % Monocytes % (0.0-12.0) % Eosinophils % (0.00-5.0) % Basophils % (0.0-0.4) % Absolute Granulocytes (1.4-6.9) x10^3/uL Basophils # (0-0.4) x10^3/uL D-Dimer (0.0-0.50) mg/L Sodium (135-145) mmol/L Potassium (3.5-5.1) mmol/L Chloride (98-107) mmol/L Carbon Dioxide (22-30) mmol/L Anion Gap (5-15) MEQ/L BUN (9-20) mg/dL Creatinine (0.66-1.25) mg/dL Estimated GFR ML/MIN Glucose (74-106) mg/dL Calcium (8.4-10.2) mg/dL Total Bilirubin (0.2-1.3) mg/dL AST (17-59) U/L ALT (0-50) U/L Alkaline Phosphatase (38-126) U/L Creatine Kinase (55-170) U/L Troponin I 0.056 H* 0.045 H* (0.000-0.033) ng/mL NT-Pro-B Natriuret Pep (<300) pg/mL Serum Total Protein (6.3-8.2) g/dL Albumin (3.5-5.0) g/dL Influenza Type A Ag NEGATIVE (NEGATIVE) Influenza Type B Ag NEGATIVE (NEGATIVE) RSV (PCR) NEGATIVE (NEGATIVE) SARS-CoV-2 (PCR) NEGATIVE (NEGATIVE) - Radiology Impressions Radiology Exams & Impressions: Radiology Procedures Category Date Time Status CHEST 1 VIEW (PORTABLE) Stat Exams 02/19/24 11:50 Completed CHEST WITH CONTRAST [CT] Stat Exams 02/19/24 12:40 Completed - Other Procedures and Tests Respiratory Therapy 02/19/24 15:16 Respiratory Therapy Consult ONCE Assessment/Plan (1) CHF exacerbation Current Visit: Yes Status: Acute Assessment & Plan: -Supplemental oxygen for spo2 goal > 88-92% -Recently taken off of home lasix -Elevated HOB -Tele -Lasix 40mg BID -Strict I&O -Daily weights -No recent ECHO patient states > 2 years ago, will obtain if available -Optimize renal/lytes with goal K>4, Mg>2 Code(s): I50.9 - HEART FAILURE, UNSPECIFIED (2) Acute on chronic kidney failure Current Visit: Yes Status: Acute Assessment & Plan: -Baseline creat around 1.4 -Avoid NSAIDS/KOFI/ARBS -Monitor renal/lytes daily -contraindication for fluids with CHF exacerbation Code(s): N17.9 - ACUTE KIDNEY FAILURE, UNSPECIFIED; N18.9 - CHRONIC KIDNEY DISEASE, UNSPECIFIED (3) History of deep venous thrombosis or pulmonary embolus Current Visit: Yes Status: Acute Assessment & Plan: -noted CT negative for PE, patient does not take home anticoagulants, has been over a year since he was last anticoagulated Code(s): UUL8081 - (4) CAD (coronary artery disease) Current Visit: Yes Status: Acute Assessment & Plan: h/o CABG/stents 8 years ago -Follows with [facility] -continue home medications Code(s): I25.10 - ATHSCL HEART DISEASE OF [place] CORONARY ARTERY W/O ANG PCTRS (5) Elevated troponin Current Visit: No Status: Acute Assessment & Plan: -Most likely demand trending down, no chest pain reported, EKG with no ST elevation, continue trop series, will repeat EKG and Trops in the a.m. -obtain echo if available Code(s): R77.8 - OTHER SPECIFIED ABNORMALITIES OF PLASMA PROTEINS (6) Hypertension Current Visit: No Status: Acute Assessment & Plan: -Patient states he has lost 30 pounds and was recently taken off of all home blood pressure medications, monitors BP at home daily, no elevations, HTN in ED may be situational, will continue to monitor -hydralizine prn for SBP >180 DBP >100 Code(s): I10 - ESSENTIAL (PRIMARY) HYPERTENSION (7) IDDM (insulin dependent diabetes mellitus) Current Visit: No Status: Acute Assessment & Plan: -Omnipod insulin pump - will continue while IP, patient has supplies, is able to manage -ADA -A1c 2 months ago at 6.7 per pt report VTE: lovenox PPI: protonix Dispo: 1-2 days Code(s): E11.9 - TYPE 2 DIABETES MELLITUS WITHOUT COMPLICATIONS; Z79.4 - SPRING WINDER (CURRENT) USE OF INSULIN Telemedicine Encounter - Telemedicine Encounter Telemedicine Encounter: The entirety of this encounter was performed via Telemedicine" <TY HYDE - Last Filed: 02/19/24 19:59> History of Present Illness - Chief Complaint History of Present Illness: is a 68 year old male. - Physical Exam Vital Signs: Vital Signs - 24 hr Temp Pulse Resp BP BP Pulse Ox 02/19/24 19:20 94 L 02/19/24 16:14 94 L 02/19/24 16:12 90 18 94 L 02/19/24 15:42 96 02/19/24 15:36 98.9 F 96 H 14 139/82 97 02/19/24 15:34 96 02/19/24 15:01 92 H 19 156/95 97 02/19/24 14:30 90 16 148/91 95 02/19/24 14:00 90 22 146/95 94 L 02/19/24 13:30 89 15 146/100 95 02/19/24 13:17 91 H 16 169/102 96 02/19/24 13:00 86 19 139/86 97 02/19/24 12:30 85 15 146/88 94 L 02/19/24 12:01 84 15 149/82 96 02/19/24 11:36 85 20 145/96 96 02/19/24 11:34 97.1 F 86 20 145/96 98 Results - Labs Lab/Micro Results: Lab Results-Last 24 Hours 02/19/24 02/19/24 02/19/24 Range/Units 12:00 12:00 12:00 WBC 5.3 (4.0-10.5) x10^3/uL RBC 5.24 (4.1-5.6) x10^6/uL Hgb 13.0 (12.5-18.0) g/dL Hct 42.5 (42-50) % MCV 81.1 (78-100) fL MCH 24.8 L (26-32) pg MCHC 30.6 L (32-36) g/dL RDW 16.1 H (11.5-14.0) % Plt Count 373 (150-450) x10^3/uL MPV 8.6 (7.5-11.0) fL Gran % 69.7 H (36.0-66.0) % Immature Gran % (Auto) 0.2 (0.00-0.4) % Nucleat RBC Rel Count 0.0 (0.00-0.1) % Eos # (Auto) 0.12 (0-0.5) x10^3/uL Immature Gran # (Auto) 0.01 (0.00-0.03) x10^3u/L Absolute Lymphs (auto) 1.07 (1.0-4.6) x10^3/uL Absolute Monos (auto) 0.37 (0.0-1.3) x10^3/uL Absolute Nucleated RBC 0.00 (0.00-0.01) x10^3u/L Lymphocytes % 20.2 L (24.0-44.0) % Monocytes % 7.0 (0.0-12.0) % Eosinophils % 2.3 (0.00-5.0) % Basophils % 0.6 (0.0-0.4) % Absolute Granulocytes 3.70 (1.4-6.9) x10^3/uL Basophils # 0.03 (0-0.4) x10^3/uL D-Dimer 1.08 H* (0.0-0.50) mg/L Sodium 139 (135-145) mmol/L Potassium 4.6 (3.5-5.1) mmol/L Chloride 106 (98-107) mmol/L Carbon Dioxide 24 (22-30) mmol/L Anion Gap 13.2 (5-15) MEQ/L BUN 19 (9-20) mg/dL Creatinine 1.66 H (0.66-1.25) mg/dL Estimated GFR 44.6 ML/MIN Glucose 153 H (74-106) mg/dL Calcium 9.3 (8.4-10.2) mg/dL Magnesium (1.6-2.3) mg/dL Total Bilirubin 0.60 (0.2-1.3) mg/dL AST 27 (17-59) U/L ALT 21 (0-50) U/L Alkaline Phosphatase 42 (38-126) U/L Creatine Kinase 37 L (55-170) U/L Troponin I (0.000-0.033) ng/mL NT-Pro-B Natriuret Pep 4880 (<300) pg/mL Serum Total Protein 7.8 (6.3-8.2) g/dL Albumin 4.0 (3.5-5.0) g/dL TSH 3rd Generation (0.47-4.68) mIU/L Urine Color (Yellow) Urine Appearance (Clear) Urine pH (4.6-8.0) Ur Specific [place] (1.005-1.030) Urine Protein (Negative) Urine Glucose (UA) (Negative) mg/dL Urine Ketones (Negative) Urine Blood (Negative) Urine Nitrite (Negative) Urine Bilirubin (Negative) Urine Urobilinogen (0.2) mg/dL Ur Leukocyte Esterase (Negative) U Hyaline Cast (Auto) (0-2) /LPF Urine Microscopic RBC (0-5) /HPF Urine Microscopic WBC (0-5) /HPF Ur Epithelial Cells (None Seen) /HPF Urine Bacteria (None Seen) /HPF Urine Culture Reflexed (NO) Influenza Type A Ag (NEGATIVE) Influenza Type B Ag (NEGATIVE) RSV (PCR) (NEGATIVE) SARS-CoV-2 (PCR) (NEGATIVE) 02/19/24 02/19/24 02/19/24 Range/Units 12:00 12:00 14:18 WBC (4.0-10.5) x10^3/uL RBC (4.1-5.6) x10^6/uL Hgb (12.5-18.0) g/dL Hct (42-50) % MCV (78-100) fL MCH (26-32) pg MCHC (32-36) g/dL RDW (11.5-14.0) % Plt Count (150-450) x10^3/uL MPV (7.5-11.0) fL Gran % (36.0-66.0) % Immature Gran % (Auto) (0.00-0.4) % Nucleat RBC Rel Count (0.00-0.1) % Eos # (Auto) (0-0.5) x10^3/uL Immature Gran # (Auto) (0.00-0.03) x10^3u/L Absolute Lymphs (auto) (1.0-4.6) x10^3/uL Absolute Monos (auto) (0.0-1.3) x10^3/uL Absolute Nucleated RBC (0.00-0.01) x10^3u/L Lymphocytes % (24.0-44.0) % Monocytes % (0.0-12.0) % Eosinophils % (0.00-5.0) % Basophils % (0.0-0.4) % Absolute Granulocytes (1.4-6.9) x10^3/uL Basophils # (0-0.4) x10^3/uL D-Dimer (0.0-0.50) mg/L Sodium (135-145) mmol/L Potassium (3.5-5.1) mmol/L Chloride (98-107) mmol/L Carbon Dioxide (22-30) mmol/L Anion Gap (5-15) MEQ/L BUN (9-20) mg/dL Creatinine (0.66-1.25) mg/dL Estimated GFR ML/MIN Glucose (74-106) mg/dL Calcium (8.4-10.2) mg/dL Magnesium (1.6-2.3) mg/dL Total Bilirubin (0.2-1.3) mg/dL AST (17-59) U/L ALT (0-50) U/L Alkaline Phosphatase (38-126) U/L Creatine Kinase (55-170) U/L Troponin I 0.056 H* 0.045 H* (0.000-0.033) ng/mL NT-Pro-B Natriuret Pep (<300) pg/mL Serum Total Protein (6.3-8.2) g/dL Albumin (3.5-5.0) g/dL TSH 3rd Generation (0.47-4.68) mIU/L Urine Color (Yellow) Urine Appearance (Clear) Urine pH (4.6-8.0) Ur Specific [place] (1.005-1.030) Urine Protein (Negative) Urine Glucose (UA) (Negative) mg/dL Urine Ketones (Negative) Urine Blood (Negative) Urine Nitrite (Negative) Urine Bilirubin (Negative) Urine Urobilinogen (0.2) mg/dL Ur Leukocyte Esterase (Negative) U Hyaline Cast (Auto) (0-2) /LPF Urine Microscopic RBC (0-5) /HPF Urine Microscopic WBC (0-5) /HPF Ur Epithelial Cells (None Seen) /HPF Urine Bacteria (None Seen) /HPF Urine Culture Reflexed (NO) Influenza Type A Ag NEGATIVE (NEGATIVE) Influenza Type B Ag NEGATIVE (NEGATIVE) RSV (PCR) NEGATIVE (NEGATIVE) SARS-CoV-2 (PCR) NEGATIVE (NEGATIVE) 02/19/24 02/19/24 02/19/24 Range/Units 14:18 14:18 19:19 WBC (4.0-10.5) x10^3/uL RBC (4.1-5.6) x10^6/uL Hgb (12.5-18.0) g/dL Hct (42-50) % MCV (78-100) fL MCH (26-32) pg MCHC (32-36) g/dL RDW (11.5-14.0) % Plt Count (150-450) x10^3/uL MPV (7.5-11.0) fL Gran % (36.0-66.0) % Immature Gran % (Auto) (0.00-0.4) % Nucleat RBC Rel Count (0.00-0.1) % Eos # (Auto) (0-0.5) x10^3/uL Immature Gran # (Auto) (0.00-0.03) x10^3u/L Absolute Lymphs (auto) (1.0-4.6) x10^3/uL Absolute Monos (auto) (0.0-1.3) x10^3/uL Absolute Nucleated RBC (0.00-0.01) x10^3u/L Lymphocytes % (24.0-44.0) % Monocytes % (0.0-12.0) % Eosinophils % (0.00-5.0) % Basophils % (0.0-0.4) % Absolute Granulocytes (1.4-6.9) x10^3/uL Basophils # (0-0.4) x10^3/uL D-Dimer (0.0-0.50) mg/L Sodium (135-145) mmol/L Potassium (3.5-5.1) mmol/L Chloride (98-107) mmol/L Carbon Dioxide (22-30) mmol/L Anion Gap (5-15) MEQ/L BUN (9-20) mg/dL Creatinine (0.66-1.25) mg/dL Estimated GFR ML/MIN Glucose (74-106) mg/dL Calcium (8.4-10.2) mg/dL Magnesium 2.2 (1.6-2.3) mg/dL Total Bilirubin (0.2-1.3) mg/dL AST (17-59) U/L ALT (0-50) U/L Alkaline Phosphatase (38-126) U/L Creatine Kinase (55-170) U/L Troponin I (0.000-0.033) ng/mL NT-Pro-B Natriuret Pep (<300) pg/mL Serum Total Protein (6.3-8.2) g/dL Albumin (3.5-5.0) g/dL TSH 3rd Generation 0.916 (0.47-4.68) mIU/L Urine Color Yellow (Yellow) Urine Appearance Clear (Clear) Urine pH 6.0 (4.6-8.0) Ur Specific [place] 1.020 (1.005-1.030) Urine Protein Negative (Negative) Urine Glucose (UA) >=1000 A (Negative) mg/dL Urine Ketones Negative (Negative) Urine Blood Negative (Negative) Urine Nitrite Negative (Negative) Urine Bilirubin Negative (Negative) Urine Urobilinogen 0.2 (0.2) mg/dL Ur Leukocyte Esterase Negative (Negative) U Hyaline Cast (Auto) NONE SEEN (0-2) /LPF Urine Microscopic RBC 0-2 (0-5) /HPF Urine Microscopic WBC 0-2 (0-5) /HPF Ur Epithelial Cells None Seen (None Seen) /HPF Urine Bacteria None Seen (None Seen) /HPF Urine Culture Reflexed NO (NO) Influenza Type A Ag (NEGATIVE) Influenza Type B Ag (NEGATIVE) RSV (PCR) (NEGATIVE) SARS-CoV-2 (PCR) (NEGATIVE) Accuchecks Date 02/19/24 Time 16:29 - Radiology Impressions Radiology Exams & Impressions: Radiology Procedures Category Date Time Status CHEST 1 VIEW (PORTABLE) Stat Exams 02/19/24 11:50 Completed CHEST WITH CONTRAST [CT] Stat Exams 02/19/24 12:40 Completed ECHO W/2D AND DOPPLER [US] Stat Exams 02/19/24 15:35 Taken - Other Procedures and Tests Respiratory Therapy 02/19/24 16:12 BiPap/CPAP ROUTINE EKG REPEAT IN AM Telemedicine Encounter - Telemedicine Encounter Telemedicine Encounter: The entirety of this encounter was performed via Telemedicine" MARLEY Encounter - MARLEY Encounter Attestation MARLEY Encounter Attestation: "JoaoeenandKAYLEIGH Johnson andhavediscussed pertinent aspects of their care with Machelle Newell agree with the history, physical exam (any modifications based on my personal exam will be noted below), assessment, and plan as outlined in original note. Please see immediately below for my summary of findings and additional assessment and plan along with any meaningful corrections/explanations to the Subjective/Objective portions of the MARLEY note will be noted." My portion of the encounter took place via telemedicine. -Patient with history of CABG with no subsequent interventions or prior diagnosis of heart failure, presenting with s/s of heart failure; dyspnea, pleural effusions, elevated BNP, mildly positive trops. Initiated on IV lasix, echo ordered. Patient is not requiring oxygen. Anticipate short stay with dc on daily lasix (patient was takaing it every other day due to hypotension, weight loss). Will also need to be on low dose beta mary if BP allows. Follow up with cardiology as outpatient.
[2024-02-19] MEDS ORDERED: TYLENOL 325 MG PO PRN (16:12)
[2024-02-19] MEDS ORDERED: Zofran 4 MG/2 ML VIAL IV PRN (16:12)
[2024-02-19] MEDS ORDERED: APRESOLINE 20 MG/ML INJ IV PRN (17:06)
[2024-02-19] MEDS: Lasix 40 MG/4 ML IV SCH (17:58)
[2024-02-19 19:28] LABS: Appearance Clear (Clear); Bacteria None Seen /HPF (None Seen); Bilirubin Negative (Negative); Blood Negative (Negative); Epithelial Cells None Seen /HPF (None Seen); Glucose, Urine >=1000 mg/dL (Negative); Hyaline Casts NONE SEEN /LPF (0-2); Ketones Negative (Negative); Leukocyte Esterase Negative (Negative); Nitrite Negative (Negative); Protein,Urine Dip Negative (Negative); RBC 0-2 /HPF (0-5); Urobilinogen 0.2 mg/dL (0.2); WBC 0-2 /HPF (0-5)
[2024-02-19 19:36] LABS: ADD URINE CULTURE? NO (NO)
[2024-02-20 05:31] LABS: Absolute Neutrophil Ct (ANC) 4.46 x10^3/uL (1.4-6.9); BASOPHIL % 0.5 % (0.0-0.4); Basophil (Absolute #) 0.03 x10^3/uL (0-0.4); Eosinophil % 1.9 % (0.00-5.0); Eosinophil (Absolute #) 0.12 x10^3/uL (0-0.5); Hematocrit 44.2 % (42-50); Hemoglobin 13.2 g/dL (12.5-18.0); IMMATURE GRAN # 0.01 x10^3u/L (0.00-0.03); IMMATURE GRAN % 0.2 % (0.00-0.4); Lymphocytes % 17.7 % (24.0-44.0); Mean Cell Volume 81.1 fL (78-100); Mean Corpuscular Hemoglobin 24.2 pg (26-32); Mean Corpuscular Hgb Concent. 29.9 g/dL (32-36); Mean Platelet Volume 8.8 fL (7.5-11.0); Monocyte (Absolute #) 0.49 x10^3/uL (0.0-1.3); Monocytes % 7.9 % (0.0-12.0); Neutrophil % 71.8 % (36.0-66.0); Platelet Count 410 x10^3/uL (150-450); Red Blood Count 5.45 x10^6/uL (4.1-5.6); Red Cell Distribution Width 16.6 % (11.5-14.0); White Blood Count 6.2 x10^3/uL (4.0-10.5)
[2024-02-20 05:47] LABS: ALBUMIN 4.3 g/dL (3.5-5.0); ANION GAP 14.8 MEQ/L (5-15); BILIRUBIN,TOTAL 0.6 mg/dL (0.2-1.3); Calcium 9.1 mg/dL (8.4-10.2); Creatinine 1 1.67 mg/dL (0.66-1.25); EST GLOMERULAR FILTRATION RATE 44.3 ML/MIN; MAGNESIUM 2.2 mg/dL (1.6-2.3); Potassium 4.1 mmol/L (3.5-5.1); Total Protein 8.1 g/dL (6.3-8.2)
--- NOTE | 2024-02-20 09:23 | PCM.DS ---
Discharge Summary Date of Admission: 02/19/24 15:30 Date of Discharge: 02/20/24 Admitting Physician: TY HYDE MD Primary Care Provider: ARTURO BOB Allergies Allergies Sulfa (Sulfonamide Antibiotics) Allergy (Verified 01/12/24 10:55) [facility] Summary - Hospital Course Hospital Course: is a 68 year old male pmhx of CHF, CAD, PE (2 years ago, > 1 year since anticoagulation), HI, HTN, DM, JOSE (CPAP), and anxiety/depression admitted for CHF exacerbation on 02/19/24. In ED, patient hypertensive. Spo2 at 97% on RA. CT of chest negative for PE with findings of new cardiomegaly, bilateral effusions R>L favoring CHF. Lab findings remarkable for Ddimer of 1.08 (No PE on CT), Creat 1.66 (baseline around 1.4), and trop I at 0.045<0.056, and BNP at 4880. EKG with NS with left atrial enlargement, left bundle branch block. Keith hawley received IV lasix with noted improvement overnight. No longer with dyspnea. Requesting discharge today. ECHO has been obtained, patient follows with Dr. Kiko Nieves as OP and was recently taken off of his BB, lasix, and hypertensive medications by his PCP due to syncopal episodes and hypotension. His blood pressures have been stable during this admission. Will resume metoprolol at 12.5mg, lasix, and add potassium supplement. Patient advised to monitor BP and HR at home, keep a log, and follow up with his PCP and Time Clock Mechanic next week for further management. Creat is slightly elevated above baseline in the setting of diuresis, advised patient to contact pcp for follow up labs on Thursday. Discharge Note New Diagnosis: CHF exacerbation New Medications: metoprolol/lasix/potassium Follow Up: Cardiology/PCP Results pending: ECHO Latest Assessment & Plan (1) CHF exacerbation Current Visit: Yes Status: Acute Assessment & Plan: -Supplemental oxygen for spo2 goal > 88-92% -Recently taken off of home lasix -Elevated HOB -Tele -Lasix 40mg BID -Strict I&O -Daily weights -No recent ECHO patient states > 2 years ago, will obtain if available -Optimize renal/lytes with goal K>4, Mg>2 02/19: -Echo pending -Patient to contact his layout artist Thursday -Metoprolol/lasix added to home regimen -Advised patient to monitor/log home BP/HR Code(s): I50.9 - HEART FAILURE, UNSPECIFIED (2) Acute on chronic kidney failure Current Visit: Yes Status: Acute Assessment & Plan: -Baseline creat around 1.4 -Avoid NSAIDS/KOFI/ARBS -Monitor renal/lytes daily -contraindication for fluids with CHF exacerbation Code(s): N17.9 - ACUTE KIDNEY FAILURE, UNSPECIFIED; N18.9 - CHRONIC KIDNEY DISEASE, UNSPECIFIED (3) History of deep venous thrombosis or pulmonary embolus Current Visit: Yes Status: Acute Assessment & Plan: -noted CT negative for PE, patient does not take home anticoagulants, has been over a year since he was last anticoagulated Code(s): RWP6891 - (4) CAD (coronary artery disease) Current Visit: Yes Status: Acute Assessment & Plan: h/o CABG/stents 8 years ago -Follows with [facility] -continue home medications Code(s): I25.10 - ATHSCL HEART DISEASE OF [place] CORONARY ARTERY W/O ANG PCTRS (5) Elevated troponin Current Visit: No Status: Acute Assessment & Plan: -Most likely demand trending down, no chest pain reported, EKG with no ST elevation, continue trop series, will repeat EKG and Trops in the a.m. -obtain echo if available Code(s): R77.8 - OTHER SPECIFIED ABNORMALITIES OF PLASMA PROTEINS (6) Hypertension Current Visit: No Status: Acute Assessment & Plan: -Patient states he has lost 30 pounds and was recently taken off of all home blood pressure medications, monitors BP at home daily, no elevations, HTN in ED may be situational, will continue to monitor -hydralizine prn for SBP >180 DBP >100 Code(s): I10 - ESSENTIAL (PRIMARY) HYPERTENSION (7) IDDM (insulin dependent diabetes mellitus) Current Visit: No Status: Acute Assessment & Plan: -Omnipod insulin pump - will continue while IP, patient has supplies, is able to manage -ADA -A1c 2 months ago at 6.7 per pt report I spent 35 minutes [id number] with the patient on the day of discharge performing discharge exam, discussing hospital stay and discharge instructions with patient and caregivers, preparation of discharge records, prescriptions & referral forms and addressing any questions/concerns the patient had as documented above. - Vitals & Intake/Output Vital Signs: Vital Signs Temperature 96.9 F 02/20/24 08:00 Pulse Rate 90 02/20/24 08:00 Respiratory Rate 18 02/20/24 08:00 Blood Pressure 131/67 02/20/24 08:00 O2 Sat by Pulse Oximetry 94 L 02/20/24 08:00 Intake & Output: Intake & Output 02/17/24 02/18/24 02/19/24 02/20/24 11:59 11:59 11:59 11:59 Intake Total 760 Balance 760 Weight 117.4 kg 114 kg - Lab Result Diagrams: 02/20/24 05:19 02/20/24 05:19 Lab Results-Last 24 Hrs: Lab Results-Last 24 Hours 02/19/24 02/19/24 02/19/24 Range/Units 12:00 12:00 12:00 WBC 5.3 (4.0-10.5) x10^3/uL RBC 5.24 (4.1-5.6) x10^6/uL Hgb 13.0 (12.5-18.0) g/dL Hct 42.5 (42-50) % MCV 81.1 (78-100) fL MCH 24.8 L (26-32) pg MCHC 30.6 L (32-36) g/dL RDW 16.1 H (11.5-14.0) % Plt Count 373 (150-450) x10^3/uL MPV 8.6 (7.5-11.0) fL Gran % 69.7 H (36.0-66.0) % Immature Gran % (Auto) 0.2 (0.00-0.4) % Nucleat RBC Rel Count 0.0 (0.00-0.1) % Eos # (Auto) 0.12 (0-0.5) x10^3/uL Immature Gran # (Auto) 0.01 (0.00-0.03) x10^3u/L Absolute Lymphs (auto) 1.07 (1.0-4.6) x10^3/uL Absolute Monos (auto) 0.37 (0.0-1.3) x10^3/uL Absolute Nucleated RBC 0.00 (0.00-0.01) x10^3u/L Lymphocytes % 20.2 L (24.0-44.0) % Monocytes % 7.0 (0.0-12.0) % Eosinophils % 2.3 (0.00-5.0) % Basophils % 0.6 (0.0-0.4) % Absolute Granulocytes 3.70 (1.4-6.9) x10^3/uL Basophils # 0.03 (0-0.4) x10^3/uL D-Dimer 1.08 H* (0.0-0.50) mg/L Sodium 139 (135-145) mmol/L Potassium 4.6 (3.5-5.1) mmol/L Chloride 106 (98-107) mmol/L Carbon Dioxide 24 (22-30) mmol/L Anion Gap 13.2 (5-15) MEQ/L BUN 19 (9-20) mg/dL Creatinine 1.66 H (0.66-1.25) mg/dL Estimated GFR 44.6 ML/MIN Glucose 153 H (74-106) mg/dL Calcium 9.3 (8.4-10.2) mg/dL Magnesium (1.6-2.3) mg/dL Total Bilirubin 0.60 (0.2-1.3) mg/dL AST 27 (17-59) U/L ALT 21 (0-50) U/L Alkaline Phosphatase 42 (38-126) U/L Creatine Kinase 37 L (55-170) U/L Troponin I (0.000-0.033) ng/mL NT-Pro-B Natriuret Pep 4880 (<300) pg/mL Serum Total Protein 7.8 (6.3-8.2) g/dL Albumin 4.0 (3.5-5.0) g/dL TSH 3rd Generation (0.47-4.68) mIU/L Urine Color (Yellow) Urine Appearance (Clear) Urine pH (4.6-8.0) Ur Specific [place] (1.005-1.030) Urine Protein (Negative) Urine Glucose (UA) (Negative) mg/dL Urine Ketones (Negative) Urine Blood (Negative) Urine Nitrite (Negative) Urine Bilirubin (Negative) Urine Urobilinogen (0.2) mg/dL Ur Leukocyte Esterase (Negative) U Hyaline Cast (Auto) (0-2) /LPF Urine Microscopic RBC (0-5) /HPF Urine Microscopic WBC (0-5) /HPF Ur Epithelial Cells (None Seen) /HPF Urine Bacteria (None Seen) /HPF Urine Culture Reflexed (NO) Influenza Type A Ag (NEGATIVE) Influenza Type B Ag (NEGATIVE) RSV (PCR) (NEGATIVE) SARS-CoV-2 (PCR) (NEGATIVE) 02/19/24 02/19/24 02/19/24 Range/Units 12:00 12:00 14:18 WBC (4.0-10.5) x10^3/uL RBC (4.1-5.6) x10^6/uL Hgb (12.5-18.0) g/dL Hct (42-50) % MCV (78-100) fL MCH (26-32) pg MCHC (32-36) g/dL RDW (11.5-14.0) % Plt Count (150-450) x10^3/uL MPV (7.5-11.0) fL Gran % (36.0-66.0) % Immature Gran % (Auto) (0.00-0.4) % Nucleat RBC Rel Count (0.00-0.1) % Eos # (Auto) (0-0.5) x10^3/uL Immature Gran # (Auto) (0.00-0.03) x10^3u/L Absolute Lymphs (auto) (1.0-4.6) x10^3/uL Absolute Monos (auto) (0.0-1.3) x10^3/uL Absolute Nucleated RBC (0.00-0.01) x10^3u/L Lymphocytes % (24.0-44.0) % Monocytes % (0.0-12.0) % Eosinophils % (0.00-5.0) % Basophils % (0.0-0.4) % Absolute Granulocytes (1.4-6.9) x10^3/uL Basophils # (0-0.4) x10^3/uL D-Dimer (0.0-0.50) mg/L Sodium (135-145) mmol/L Potassium (3.5-5.1) mmol/L Chloride (98-107) mmol/L Carbon Dioxide (22-30) mmol/L Anion Gap (5-15) MEQ/L BUN (9-20) mg/dL Creatinine (0.66-1.25) mg/dL Estimated GFR ML/MIN Glucose (74-106) mg/dL Calcium (8.4-10.2) mg/dL Magnesium (1.6-2.3) mg/dL Total Bilirubin (0.2-1.3) mg/dL AST (17-59) U/L ALT (0-50) U/L Alkaline Phosphatase (38-126) U/L Creatine Kinase (55-170) U/L Troponin I 0.056 H* 0.045 H* (0.000-0.033) ng/mL NT-Pro-B Natriuret Pep (<300) pg/mL Serum Total Protein (6.3-8.2) g/dL Albumin (3.5-5.0) g/dL TSH 3rd Generation (0.47-4.68) mIU/L Urine Color (Yellow) Urine Appearance (Clear) Urine pH (4.6-8.0) Ur Specific [place] (1.005-1.030) Urine Protein (Negative) Urine Glucose (UA) (Negative) mg/dL Urine Ketones (Negative) Urine Blood (Negative) Urine Nitrite (Negative) Urine Bilirubin (Negative) Urine Urobilinogen (0.2) mg/dL Ur Leukocyte Esterase (Negative) U Hyaline Cast (Auto) (0-2) /LPF Urine Microscopic RBC (0-5) /HPF Urine Microscopic WBC (0-5) /HPF Ur Epithelial Cells (None Seen) /HPF Urine Bacteria (None Seen) /HPF Urine Culture Reflexed (NO) Influenza Type A Ag NEGATIVE (NEGATIVE) Influenza Type B Ag NEGATIVE (NEGATIVE) RSV (PCR) NEGATIVE (NEGATIVE) SARS-CoV-2 (PCR) NEGATIVE (NEGATIVE) 02/19/24 02/19/24 02/19/24 Range/Units 14:18 14:18 19:19 WBC (4.0-10.5) x10^3/uL RBC (4.1-5.6) x10^6/uL Hgb (12.5-18.0) g/dL Hct (42-50) % MCV (78-100) fL MCH (26-32) pg MCHC (32-36) g/dL RDW (11.5-14.0) % Plt Count (150-450) x10^3/uL MPV (7.5-11.0) fL Gran % (36.0-66.0) % Immature Gran % (Auto) (0.00-0.4) % Nucleat RBC Rel Count (0.00-0.1) % Eos # (Auto) (0-0.5) x10^3/uL Immature Gran # (Auto) (0.00-0.03) x10^3u/L Absolute Lymphs (auto) (1.0-4.6) x10^3/uL Absolute Monos (auto) (0.0-1.3) x10^3/uL Absolute Nucleated RBC (0.00-0.01) x10^3u/L Lymphocytes % (24.0-44.0) % Monocytes % (0.0-12.0) % Eosinophils % (0.00-5.0) % Basophils % (0.0-0.4) % Absolute Granulocytes (1.4-6.9) x10^3/uL Basophils # (0-0.4) x10^3/uL D-Dimer (0.0-0.50) mg/L Sodium (135-145) mmol/L Potassium (3.5-5.1) mmol/L Chloride (98-107) mmol/L Carbon Dioxide (22-30) mmol/L Anion Gap (5-15) MEQ/L BUN (9-20) mg/dL Creatinine (0.66-1.25) mg/dL Estimated GFR ML/MIN Glucose (74-106) mg/dL Calcium (8.4-10.2) mg/dL Magnesium 2.2 (1.6-2.3) mg/dL Total Bilirubin (0.2-1.3) mg/dL AST (17-59) U/L ALT (0-50) U/L Alkaline Phosphatase (38-126) U/L Creatine Kinase (55-170) U/L Troponin I (0.000-0.033) ng/mL NT-Pro-B Natriuret Pep (<300) pg/mL Serum Total Protein (6.3-8.2) g/dL Albumin (3.5-5.0) g/dL TSH 3rd Generation 0.916 (0.47-4.68) mIU/L Urine Color Yellow (Yellow) Urine Appearance Clear (Clear) Urine pH 6.0 (4.6-8.0) Ur Specific [place] 1.020 (1.005-1.030) Urine Protein Negative (Negative) Urine Glucose (UA) >=1000 A (Negative) mg/dL Urine Ketones Negative (Negative) Urine Blood Negative (Negative) Urine Nitrite Negative (Negative) Urine Bilirubin Negative (Negative) Urine Urobilinogen 0.2 (0.2) mg/dL Ur Leukocyte Esterase Negative (Negative) U Hyaline Cast (Auto) NONE SEEN (0-2) /LPF Urine Microscopic RBC 0-2 (0-5) /HPF Urine Microscopic WBC 0-2 (0-5) /HPF Ur Epithelial Cells None Seen (None Seen) /HPF Urine Bacteria None Seen (None Seen) /HPF Urine Culture Reflexed NO (NO) Influenza Type A Ag (NEGATIVE) Influenza Type B Ag (NEGATIVE) RSV (PCR) (NEGATIVE) SARS-CoV-2 (PCR) (NEGATIVE) 02/19/24 02/20/24 02/20/24 Range/Units 20:05 05:19 05:19 WBC 6.2 (4.0-10.5) x10^3/uL RBC 5.45 (4.1-5.6) x10^6/uL Hgb 13.2 (12.5-18.0) g/dL Hct 44.2 (42-50) % MCV 81.1 (78-100) fL MCH 24.2 L (26-32) pg MCHC 29.9 L (32-36) g/dL RDW 16.6 H (11.5-14.0) % Plt Count 410 (150-450) x10^3/uL MPV 8.8 (7.5-11.0) fL Gran % 71.8 H (36.0-66.0) % Immature Gran % (Auto) 0.2 (0.00-0.4) % Nucleat RBC Rel Count 0.0 (0.00-0.1) % Eos # (Auto) 0.12 (0-0.5) x10^3/uL Immature Gran # (Auto) 0.01 (0.00-0.03) x10^3u/L Absolute Lymphs (auto) 1.10 (1.0-4.6) x10^3/uL Absolute Monos (auto) 0.49 (0.0-1.3) x10^3/uL Absolute Nucleated RBC 0.00 (0.00-0.01) x10^3u/L Lymphocytes % 17.7 L (24.0-44.0) % Monocytes % 7.9 (0.0-12.0) % Eosinophils % 1.9 (0.00-5.0) % Basophils % 0.5 (0.0-0.4) % Absolute Granulocytes 4.46 (1.4-6.9) x10^3/uL Basophils # 0.03 (0-0.4) x10^3/uL D-Dimer (0.0-0.50) mg/L Sodium 141 (135-145) mmol/L Potassium 4.1 (3.5-5.1) mmol/L Chloride 106 (98-107) mmol/L Carbon Dioxide 25 (22-30) mmol/L Anion Gap 14.8 (5-15) MEQ/L BUN 23 H (9-20) mg/dL Creatinine 1.67 H (0.66-1.25) mg/dL Estimated GFR 44.3 ML/MIN Glucose 139 H (74-106) mg/dL Calcium 9.1 (8.4-10.2) mg/dL Magnesium 2.2 (1.6-2.3) mg/dL Total Bilirubin 0.60 (0.2-1.3) mg/dL AST 31 (17-59) U/L ALT 22 (0-50) U/L Alkaline Phosphatase 38 (38-126) U/L Creatine Kinase (55-170) U/L Troponin I 0.060 H* (0.000-0.033) ng/mL NT-Pro-B Natriuret Pep (<300) pg/mL Serum Total Protein 8.1 (6.3-8.2) g/dL Albumin 4.3 (3.5-5.0) g/dL TSH 3rd Generation (0.47-4.68) mIU/L Urine Color (Yellow) Urine Appearance (Clear) Urine pH (4.6-8.0) Ur Specific [place] (1.005-1.030) Urine Protein (Negative) Urine Glucose (UA) (Negative) mg/dL Urine Ketones (Negative) Urine Blood (Negative) Urine Nitrite (Negative) Urine Bilirubin (Negative) Urine Urobilinogen (0.2) mg/dL Ur Leukocyte Esterase (Negative) U Hyaline Cast (Auto) (0-2) /LPF Urine Microscopic RBC (0-5) /HPF Urine Microscopic WBC (0-5) /HPF Ur Epithelial Cells (None Seen) /HPF Urine Bacteria (None Seen) /HPF Urine Culture Reflexed (NO) Influenza Type A Ag (NEGATIVE) Influenza Type B Ag (NEGATIVE) RSV (PCR) (NEGATIVE) SARS-CoV-2 (PCR) (NEGATIVE) 02/20/24 Range/Units 05:19 WBC (4.0-10.5) x10^3/uL RBC (4.1-5.6) x10^6/uL Hgb (12.5-18.0) g/dL Hct (42-50) % MCV (78-100) fL MCH (26-32) pg MCHC (32-36) g/dL RDW (11.5-14.0) % Plt Count (150-450) x10^3/uL MPV (7.5-11.0) fL Gran % (36.0-66.0) % Immature Gran % (Auto) (0.00-0.4) % Nucleat RBC Rel Count (0.00-0.1) % Eos # (Auto) (0-0.5) x10^3/uL Immature Gran # (Auto) (0.00-0.03) x10^3u/L Absolute Lymphs (auto) (1.0-4.6) x10^3/uL Absolute Monos (auto) (0.0-1.3) x10^3/uL Absolute Nucleated RBC (0.00-0.01) x10^3u/L Lymphocytes % (24.0-44.0) % Monocytes % (0.0-12.0) % Eosinophils % (0.00-5.0) % Basophils % (0.0-0.4) % Absolute Granulocytes (1.4-6.9) x10^3/uL Basophils # (0-0.4) x10^3/uL D-Dimer (0.0-0.50) mg/L Sodium (135-145) mmol/L Potassium (3.5-5.1) mmol/L Chloride (98-107) mmol/L Carbon Dioxide (22-30) mmol/L Anion Gap (5-15) MEQ/L BUN (9-20) mg/dL Creatinine (0.66-1.25) mg/dL Estimated GFR ML/MIN Glucose (74-106) mg/dL Calcium (8.4-10.2) mg/dL Magnesium (1.6-2.3) mg/dL Total Bilirubin (0.2-1.3) mg/dL AST (17-59) U/L ALT (0-50) U/L Alkaline Phosphatase (38-126) U/L Creatine Kinase (55-170) U/L Troponin I 0.076 H* (0.000-0.033) ng/mL NT-Pro-B Natriuret Pep (<300) pg/mL Serum Total Protein (6.3-8.2) g/dL Albumin (3.5-5.0) g/dL TSH 3rd Generation (0.47-4.68) mIU/L Urine Color (Yellow) Urine Appearance (Clear) Urine pH (4.6-8.0) Ur Specific [place] (1.005-1.030) Urine Protein (Negative) Urine Glucose (UA) (Negative) mg/dL Urine Ketones (Negative) Urine Blood (Negative) Urine Nitrite (Negative) Urine Bilirubin (Negative) Urine Urobilinogen (0.2) mg/dL Ur Leukocyte Esterase (Negative) U Hyaline Cast (Auto) (0-2) /LPF Urine Microscopic RBC (0-5) /HPF Urine Microscopic WBC (0-5) /HPF Ur Epithelial Cells (None Seen) /HPF Urine Bacteria (None Seen) /HPF Urine Culture Reflexed (NO) Influenza Type A Ag (NEGATIVE) Influenza Type B Ag (NEGATIVE) RSV (PCR) (NEGATIVE) SARS-CoV-2 (PCR) (NEGATIVE) Micro Results-Entire Visit: Accuchecks Date 02/20/24 Date 02/19/24 Date 02/19/24 Time 08:38 Time 22:00 Time 16:29 - Radiology Exams Ordered Rad Exams-Entire Visit: Radiology Procedures Category Date Time Status CHEST 1 VIEW (PORTABLE) Stat Exams 02/19/24 11:50 Completed CHEST WITH CONTRAST [CT] Stat Exams 02/19/24 12:40 Completed ECHO W/2D AND DOPPLER [US] Stat Exams 02/19/24 15:35 Taken - Procedures and Test Procedures and Tests throughout Hospitalization: Therapy Orders & Screens 02/19/24 16:12 BiPap/CPAP ROUTINE Comment: Diagnosis: CHF exacerbation EKG REPEAT IN AM Comment: Diagnosis: CHF exacerbation Respiratory Therapy Consult ONCE Comment: Reason For Exam: Diagnosis: CHF exacerbation Discharge Exam General Appearance: no apparent distress Neurologic Exam: alert, oriented x 3, cooperative Eye Exam: PERRL Ears, Nose, Throat Exam: normal ENT inspection Neck Exam: normal inspection Respiratory Exam: crackles/rales Cardiovascular Exam: regular rate/rhythm, normal heart sounds Gastrointestinal/Abdomen Exam: soft, normal bowel sounds Male Genitalia Exam: deferred Rectal Exam: deferred Back Exam: normal inspection Extremity Exam: normal inspection Skin Exam: normal color Final Diagnosis/Problem List - Final Discharge Diagnosis/Problem (1) CHF exacerbation Current Visit: Yes Status: Acute Code(s): I50.9 - HEART FAILURE, UNSPECIFIED (2) Acute on chronic kidney failure Current Visit: Yes Status: Acute Code(s): N17.9 - ACUTE KIDNEY FAILURE, UNSPECIFIED; N18.9 - CHRONIC KIDNEY DISEASE, UNSPECIFIED (3) History of deep venous thrombosis or pulmonary embolus Current Visit: Yes Status: Acute Code(s): JCS8729 - (4) CAD (coronary artery disease) Current Visit: Yes Status: Acute Code(s): I25.10 - ATHSCL HEART DISEASE OF [place] CORONARY ARTERY W/O ANG PCTRS (5) Elevated troponin Current Visit: No Status: Acute Code(s): R77.8 - OTHER SPECIFIED ABNORMALITIES OF PLASMA PROTEINS (6) Hypertension Current Visit: No Status: Acute Code(s): I10 - ESSENTIAL (PRIMARY) HYPERTENSION (7) IDDM (insulin dependent diabetes mellitus) Current Visit: No Status: Acute Code(s): E11.9 - TYPE 2 DIABETES MELLITUS WITHOUT COMPLICATIONS; Z79.4 - M[facility] (CURRENT) USE OF INSULIN - Discharge Disposition: Home, Self-Care Condition: Stable Prescriptions: New Potassium Chloride Tab* [Klor Con] 20 meq PO DAILY 30 Days #30 tablet Furosemide 20 mg [Lasix 20 mg] 20 mg PO BID 30 Days #60 tablet Metoprolol Succinate 25 mg Xl* [Toprol-Xl 25MG Tablets] 12.5 mg PO DAILY 30 Days #15 tablet Continue Aspirin 81 mg PO DAILY Insulin Lispro [Humalog] 0 unit SQ UD Escitalopram Oxalate [Lexapro] 20 mg PO DAILY Gabapentin 400 mg PO BID Atorvastatin Calcium 80 mg PO DAILY Metformin HCl [Glucophage] 1,000 mg PO BID Nitroglycerin 0.4 mg Tablet [Nitrostat 0.4 MG Tablet] 1 tab SL UD Dapagliflozin Propanediol [Farxiga] 10 mg PO DAILY AMITRIPTYLINE HCL 50 mg Tab [AMITRIPTYLINE HCL 50 mg Tablet] 50 mg PO HS Multivitamin [Multi-Vitamin Daily] 1 each PO DAILY Cyanocobalamin/Cobamamide [B-12 5,000 Mcg Sublingual Tab] 1 tab PO DAILY Alpha Lipoic Acid 600 mg PO DAILY Additional Instructions: Call PCP and Cardiology Thursday for appts. Will need lab draw to check renal/lytes with PCP Thursday Follow up with: ARTURO BOB NP [Primary Care Provider] - ABILIO NIEVES MD [CONSULTING PHYSICIAN] -
[2024-02-20] MEDS ORDERED: PATIENT OWN MEDICATION IJ SCH (10:00)
[2024-02-20] MEDS: Toprol-Xl 25MG Tablets PO SCH (10:11)
[2024-02-20] MEDS: Klor Con PO SCH (10:11)
[2024-02-20] MEDS: ENOXAPARIN SODIUM SQ SCH (10:12)
[2024-02-20 12:08] VITALS: BP 152/75; PULSE 84; RESP 17; TEMP 97.2; O2SAT 95
== END 2024-02-20 14:42 | disposition home or self-care (01) ==
LOC: ED 11:33 → MED SURG 15:30
PROVIDERS: ADMIT Internal Medicine; ATTEND Internal Medicine
DX: E11.22 Type 2 diabetes mellitus with diabetic chronic kidney disease (principal); I13.0 Hypertensive heart and chronic kidney disease with heart failure and stage 1 through stage 4 chronic kidney disease, or unspecified chronic kidney disease; N18.9 Chronic kidney disease, unspecified; I50.9 Heart failure, unspecified; N17.9 Acute kidney failure, unspecified; Z86.718 Personal history of other venous thrombosis and embolism; I25.10 Atherosclerotic heart disease of native coronary artery without angina pectoris; I25.2 Old myocardial infarction; G47.30 Sleep apnea, unspecified; R77.8 Other specified abnormalities of plasma proteins; Z79.899 Other long term (current) drug therapy; Z95.0 Presence of cardiac pacemaker
CPT/HCPCS: 0241U; 36000; 36415; 71045; 71260; 80053; 81001; 82550; 83735; 83880; 84443; 84484; 85025; 85379; 93005; 93041; 93306; 94762; 99285; 93268; J1650; J1940; Q3014; A9270-GY; G0378

== ENCOUNTER 2025-02-20 15:43 | Emergency (ER) | payer MEDICARE ==
[2025-02-20 16:26] VITALS: TEMP 98
--- NOTE | 2025-02-20 16:31 | ERPHSYRPT ---
- History of Present Illness Time Seen by Provider: 02/20/25 16:31 Source: patient, family Exam Limitations: no limitations Physician History: This is a 69-year-old white male patient of Dr. 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 It began approximately 6 hours prior to his arrival to the emergency department. Patient is on Plavix and aspirin. Patient had paper packing within the left nostril. Patient has a history of hyperlipidemia, diabetes, CHF, coronary artery disease (CABG and cardiac stent) DVT and anxiety. He currently has no chest pain and is not short of breath. Patient denies trauma of any kind to his nose. Timing/Duration: today Severity: mild Associated Symptoms: denies symptoms, No shortness of breath (Will), No chest pain Allergies/Adverse Reactions: Sulfa (Sulfonamide Antibiotics) Allergy (Verified 02/20/25 16:34) Hives Home Medications: Aspirin 81 mg PO DAILY 12/28/14 [History] Insulin Lispro [Humalog] 0 unit SQ UD 12/28/14 [History] Atorvastatin Calcium 80 mg PO DAILY 08/04/19 [History] Escitalopram Oxalate [Lexapro] 20 mg PO DAILY 08/04/19 [History] Gabapentin 400 mg PO BID 08/04/19 [History] Metformin HCl [Glucophage] 1,000 mg PO BID 08/04/19 [History] Dapagliflozin Propanediol [Farxiga] 10 mg PO DAILY 01/12/24 [History] Nitroglycerin 0.4 mg Tablet [Nitrostat 0.4 MG Tablet] 1 tab SL UD 01/12/24 [History] AMITRIPTYLINE HCL 50 mg Tab [AMITRIPTYLINE HCL 50 mg Tablet] 50 mg PO HS 02/19/24 [History] Alpha Lipoic Acid 600 mg PO DAILY 02/19/24 [History] Cyanocobalamin/Cobamamide [B-12 5,000 Mcg Sublingual Tab] 1 tab PO DAILY 02/19/24 [History] Multivitamin [Multi-Vitamin Daily] 1 each PO DAILY 02/19/24 [History] Hx Tetanus, Diphtheria Vaccination/Date Given: No Hx Influenza Vaccination/Date Given: Yes Hx Pneumococcal Vaccination/Date Given: Yes Travel Risk - International Travel Have you traveled outside of the country in past 3 weeks: No - Emerging Infectious Disease Are you exhibiting symptoms associated with any current EIDs: No Symptoms: Cough: New Onset - Review of Systems Constitutional: No Symptoms Eyes: No Symptoms Ears, Nose, & Throat: Epistaxis (Nostril) Respiratory: No Symptoms Cardiac: No Symptoms Abdominal/Gastrointestinal: No Symptoms Genitourinary Symptoms: No Symptoms Musculoskeletal: No Symptoms Skin: No Symptoms Neurological: No Symptoms Psychological: No Symptoms Endocrine: No Symptoms Hematologic/Lymphatic: No Symptoms Immunological/Allergic: No Symptoms All Other Systems: Reviewed and Negative - Past Medical History Pertinent Past Medical History: Yes Neurological History: No Pertinent History Cardiac History: Congestive Heart Failure, Coronary Artery Disease, Deep Vein Thrombosis, Hypertension, Myocardial Infarction (CT) Respiratory History: Sleep Apnea Endocrine Medical History: Diabetes Type II Musculoskeletal History: No Pertinent History GI Medical History: No Pertinent History History: No Pertinent History Psycho-Social History: Anxiety, Depression Male Reproductive Disorders: No Pertinent History Other Medical History: uses cpap, - Past Surgical History Past Surgical History: Yes Neuro Surgical History: No Pertinent History Cardiac: CABG, Cardiac Catheterization, Cardiac Stent Respiratory: No Pertinent History Gastrointestinal: No Pertinent History Genitourinary: No Pertinent History Musculoskeletal: No Pertinent History Male Surgical History: No Pertinent History Other Surgical History: bypass surgery 8 years ago Significant Family History: no pertinent family hx - Social History Smoking Status: Never smoker Exposure to second hand smoke: No Drug Use: none - Social Determinants of Health Will the patient participate in the screening: Yes Do you worry about a steady place to live?: No In the past 12 months,have you had to go without utilities?: No Transportation Issues: No Has anyone in your support network made you feel unsafe?: No Have you or anyone in your house had to go w/o enough food: No - Nursing Vital Signs Nursing Vital Signs: Initial Vital Signs Temperature 98 F 02/20/25 16:15 Pulse Rate 70 02/20/25 16:15 Respiratory Rate 23 02/20/25 16:15 Blood Pressure 108/42 02/20/25 16:15 O2 Sat by Pulse Oximetry 99 02/20/25 16:15 Pain Scale Pain Intensity 4 - Physical Exam General Appearance: no apparent distress, alert Eye Exam: PERRL/EOMI, eyes nml inspection Ears, Nose, Throat Exam: moist mucous membranes, other (No active bleeding from the left nostril. However there is a bloodsoaked packing gauze in the left nostril. 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 The patient's packing gauze was removed and the nostril cavity was explored. There was a small blood clot on the medial aspect of the left nostril. No active bleeding present. We then placed a 5.5 anterior rapid Rhino device. It was soaked in sterile water and then inflated with air. We watched for several minutes and patient did not experience any further bleeding either externally or in the back of his throat. We also remove the packing from the patient's right nostril and there was no clot and there was no active bleeding present on exploration and examination. - Course Nursing assessment & vital signs reviewed: Yes Ordered Tests: Active Orders 24 hr Category Date Time Status CBC W DIFF Stat Lab 02/20/25 17:00 Completed CMP Stat Lab 02/20/25 16:40 Completed PROTIME WITH INR Stat Lab 02/20/25 16:40 Completed Medication Summary Discontinued Medications Generic Name Dose Route Start Last Admin Trade Name Freq PRN Reason Stop Dose Admin Bumetanide 2 mg 02/20/25 16:41 02/20/25 16:45 Bumetanide 0.25 Mg/Ml 4ml Vial IV 02/20/25 16:42 2 mg STAT STA Administration Bumetanide Confirm 02/20/25 16:43 Bumetanide 0.25 Mg/Ml 4ml Vial Administered 02/20/25 16:44 Dose 2 mg .ROUTE .[employer] ONE Lab/Rad Data: Laboratory Result Diagrams 02/20/25 17:00 02/20/25 16:40 Laboratory Results 02/20/25 02/20/25 02/20/25 Range/Units 17:00 16:40 16:40 WBC 6.7 (4.23-9.07) x10^3/uL RBC 4.11 L (4.63-6.08) x10^6/uL Hgb 11.0 L (13.7-17.5) g/dL Hct 35.5 L (40.1-51.0) % MCV 86.4 (79.0-92.2) fL MCH 26.8 (25.7-32.2) pg MCHC 31.0 L (32.3-36.5) g/dL RDW 16.9 H (11.6-14.4) % Plt Count 221 (163-337) x10^3/uL MPV 10.0 (9.4-12.4) fL Gran % 79.6 H (34.0-67.9) % Immature Gran % (Auto) 0.1 (0.001-0.429) % Nucleat RBC Rel Count 0.0 (0.00-0.2) % Eos # (Auto) 0.15 (0.04-0.54) x10^3/uL Immature Gran # (Auto) 0.01 (0.001-0.031) x10^3u/L Absolute Lymphs (auto) 0.64 L (1.32-3.57) x10^3/uL Absolute Monos (auto) 0.54 (0.30-0.82) x10^3/uL Absolute Nucleated RBC 0.00 (0.00-0.012) x10^3u/L Lymphocytes % 9.6 L (21.8-53.1) % Monocytes % 8.1 (5.3-12.2) % Eosinophils % 2.2 (0.8-7.0) % Basophils % 0.4 (0.2-1.2) % Absolute Granulocytes 5.33 (1.78-5.38) x10^3/uL Basophils # 0.03 (0.01-0.08) x10^3/uL PT 10.3 (9.4-12.5) SECONDS INR 0.94 (0.8-3.0) Sodium 143 (135-145) mmol/L Potassium 4.7 (3.5-5.1) mmol/L Chloride 101 (98-107) mmol/L Carbon Dioxide 30 (22-30) mmol/L Anion Gap 16.7 H (5-15) MEQ/L BUN 47 H (9-20) mg/dL Creatinine 1.77 H (0.66-1.25) mg/dL Estimated GFR 41.1 ML/MIN Glucose 145 H (74-106) mg/dL Calcium 9.0 (8.4-10.2) mg/dL Total Bilirubin 0.90 (0.2-1.3) mg/dL AST 51 (17-59) U/L ALT 33 (0-50) U/L Alkaline Phosphatase 98 (38-126) U/L Serum Total Protein 8.0 (6.3-8.2) g/dL Albumin 4.3 (3.5-5.0) g/dL - Progress Progress: improved Progress Note: 02/20/25 18:18 My medical decision making and the assignment of low to moderate complexity is based on review of the patient's past medical history, review of the patient's medication list, review the patient's drug allergy list, review the patient's history present illness and physical findings on examination. The workup i ncludes CBC, PT/INR and CMP. Differential diagnosis includes was not limited to epistaxis secondary to liver disease, epistaxis secondary to medication side effect I interpreted the patient's laboratory data results. Based on the laboratory data results, there are no acute, emergent medical issues. Counseled pt/family regarding: lab results, diagnosis, need for follow-up Medical Desision Making - Diagnostic Testing Diagnostic test were ordered, analyzed, and reviewed by me: Yes - Risk of complications Low Risk: Low risk of morbidity from additional dx testing or treatment - Departure Departure Disposition: Home Clinical Impression: Epistaxis Condition: Stable Critical Care Time: No Referrals: ARTURO BOB NP [Primary Care Provider] - Follow up/PCP as directed Additional Instructions: Stop your Plavix and aspirin. Do not restart them until the morning of 02/22/2025. Call the e learning developer phone number that we provided you tomorrow morning. Take your antibiotics as prescribed. You can always come to our emergency department for reassessment if you begin bleeding despite the Rhino Rocket in place. However, recall that we discussed that we do not have ea r nose and throat specialist. Therefore, if you feel it necessary, and can make it to an emergency department with e learning developer, it would be appropriate to transport yourself there. Prescriptions: Cephalexin Mh 500 mg [Keflex 500 mg] 500 mg PO TID #21 cap
[2025-02-20] MEDS ORDERED: BUMEX 1 MG ONE (16:43)
[2025-02-20] MEDS: BUMEX 1 MG IV STA (16:45)
[2025-02-20 17:13] LABS: Absolute Neutrophil Ct (ANC) 5.33 x10^3/uL (1.78-5.38); BASOPHIL % 0.4 % (0.2-1.2); Basophil (Absolute #) 0.03 x10^3/uL (0.01-0.08); Eosinophil % 2.2 % (0.8-7.0); Eosinophil (Absolute #) 0.15 x10^3/uL (0.04-0.54); Hematocrit 35.5 % (40.1-51.0); IMMATURE GRAN # 0.01 x10^3u/L (0.001-0.031); IMMATURE GRAN % 0.1 % (0.001-0.429); Lymphocyte (Absolute #) 0.64 x10^3/uL (1.32-3.57); Lymphocytes % 9.6 % (21.8-53.1); Mean Cell Volume 86.4 fL (79.0-92.2); Mean Corpuscular Hemoglobin 26.8 pg (25.7-32.2); Monocyte (Absolute #) 0.54 x10^3/uL (0.30-0.82); Monocytes % 8.1 % (5.3-12.2); Neutrophil % 79.6 % (34.0-67.9); Platelet Count 221 x10^3/uL (163-337); Red Blood Count 4.11 x10^6/uL (4.63-6.08); Red Cell Distribution Width 16.9 % (11.6-14.4); White Blood Count 6.7 x10^3/uL (4.23-9.07)
[2025-02-20 17:29] LABS: INR 0.94 (0.8-3.0); PROTIME 10.3 SECONDS (9.4-12.5)
[2025-02-20 17:31] LABS: ALBUMIN 4.3 g/dL (3.5-5.0); ANION GAP 16.7 MEQ/L (5-15); BILIRUBIN,TOTAL 0.9 mg/dL (0.2-1.3); Creatinine 1 1.77 mg/dL (0.66-1.25); EST GLOMERULAR FILTRATION RATE 41.1 ML/MIN; Potassium 4.7 mmol/L (3.5-5.1)
[2025-02-20 18:19] VITALS: O2SAT 99
[2025-02-20 18:40] VITALS: BP 143/89; PULSE 78; RESP 23
== END 2025-02-20 18:41 | disposition home or self-care (01) ==
LOC: ED 15:43
DX: R04.0 Epistaxis (principal); E78.5 Hyperlipidemia, unspecified; E11.9 Type 2 diabetes mellitus without complications; I11.0 Hypertensive heart disease with heart failure; I50.9 Heart failure, unspecified; Z79.4 Long term (current) use of insulin; Z79.84 Long term (current) use of oral hypoglycemic drugs; Z79.899 Other long term (current) drug therapy
CPT/HCPCS: 30901; 36415; 80053; 85025; 85610; 96374; 99284

== ENCOUNTER 2025-02-23 23:11 | Emergency (ER) | payer MEDICARE ==
[2025-02-23 23:27] VITALS: TEMP 97.8
[2025-02-23 23:32] VITALS: O2SAT 95
[2025-02-23 23:32] LABS: Absolute Neutrophil Ct (ANC) 4.75 x10^3/uL (1.78-5.38); BASOPHIL % 0.2 % (0.2-1.2); Basophil (Absolute #) 0.01 x10^3/uL (0.01-0.08); Eosinophil % 1.9 % (0.8-7.0); Eosinophil (Absolute #) 0.12 x10^3/uL (0.04-0.54); Hematocrit 30.5 % (40.1-51.0); Hemoglobin 9.6 g/dL (13.7-17.5); IMMATURE GRAN # 0.02 x10^3u/L (0.001-0.031); IMMATURE GRAN % 0.3 % (0.001-0.429); Lymphocyte (Absolute #) 0.81 x10^3/uL (1.32-3.57); Lymphocytes % 12.9 % (21.8-53.1); Mean Cell Volume 85.4 fL (79.0-92.2); Mean Corpuscular Hemoglobin 26.9 pg (25.7-32.2); Mean Corpuscular Hgb Concent. 31.5 g/dL (32.3-36.5); Mean Platelet Volume 9.7 fL (9.4-12.4); Monocyte (Absolute #) 0.58 x10^3/uL (0.30-0.82); Monocytes % 9.2 % (5.3-12.2); Neutrophil % 75.5 % (34.0-67.9); Platelet Count 205 x10^3/uL (163-337); Red Blood Count 3.57 x10^6/uL (4.63-6.08); Red Cell Distribution Width 16.9 % (11.6-14.4); White Blood Count 6.3 x10^3/uL (4.23-9.07)
[2025-02-23 23:45] LABS: ALBUMIN 3.6 g/dL (3.5-5.0); BILIRUBIN,TOTAL 0.6 mg/dL (0.2-1.3); Calcium 8.9 mg/dL (8.4-10.2); Creatinine 1 1.53 mg/dL (0.66-1.25); EST GLOMERULAR FILTRATION RATE 48.9 ML/MIN; Potassium 4.2 mmol/L (3.5-5.1); Total Protein 6.4 g/dL (6.3-8.2)
[2025-02-23] MEDS ORDERED: Cordarone 150 MG/3 ML Injection IV ONE (23:50)
[2025-02-23 23:51] LABS: TROPONIN 0.026 ng/mL (0.000-0.033)
[2025-02-23] MEDS ORDERED: Cordarone 150 MG/3 ML Injection ONE (23:52)
[2025-02-24] MEDS ORDERED: Sodium Chloride 0.9% 0 ML ONE (00:02)
[2025-02-24] MEDS ORDERED: D5w 100ML Mini Bag 100 ML 100 ML IV ONE (00:05)
[2025-02-24] MEDS: Cordarone 150 MG/3 ML Injection*** 150 MG in D5w 100ML Mini Bag 100 ML 100 ML IV ONE (00:10)
[2025-02-24] MEDS ORDERED: NEXTERONE 360 MG/200 ML BAG 360 MG/200 ML PLAST..BAG IV ONE (00:13)
--- NOTE | 2025-02-24 00:15 | ERPHSYRPT ---
- History of Present Illness Time Seen by Provider: 02/23/25 23:14 Source: patient, family, EMS Exam Limitations: no limitations Patient Subjective Stated Complaint: pt states that he had a coughing spell because he choked on candy. 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 Patient apparently was sucking on a hard candy and accidentally got choked on with possible aspiration followed by coughing spell around 8 PM. Later on patient started to have dizziness and headache, checked his blood pressure it was in 70s and heart rate in 130s. Patient denies any chest pain or shortness of breath but reports soreness in the throat and was complaining of some swelling in the throat and was placed on nonrebreather. Patient has left Rhino Rocket placement 3 days ago in this ER for epistaxis and reports it has been hurting a lot since then. No fever or chills reported. No increased swelling in the lower extremities. His blood pressure is in 70s on presentation with heart rate in 140s. Patient is not in any obvious apparent distress with respect to his vitals. Allergies/Adverse Reactions: Sulfa (Sulfonamide Antibiotics) Allergy (Verified 02/23/25 23:14) Hives Home Medications: Aspirin 81 mg PO DAILY 12/28/14 [History] Insulin Lispro [Humalog] 0 unit SQ UD 12/28/14 [History] Atorvastatin Calcium 80 mg PO DAILY 08/04/19 [History] Escitalopram Oxalate [Lexapro] 20 mg PO DAILY 08/04/19 [History] Gabapentin 400 mg PO BID 08/04/19 [History] Metformin HCl [Glucophage] 1,000 mg PO BID 08/04/19 [History] Dapagliflozin Propanediol [Farxiga] 10 mg PO DAILY 01/12/24 [History] Nitroglycerin 0.4 mg Tablet [Nitrostat 0.4 MG Tablet] 1 tab SL UD 01/12/24 [History] AMITRIPTYLINE HCL 50 mg Tab [AMITRIPTYLINE HCL 50 mg Tablet] 50 mg PO HS 02/19/24 [History] Alpha Lipoic Acid 600 mg PO DAILY 02/19/24 [History] Cyanocobalamin/Cobamamide [B-12 5,000 Mcg Sublingual Tab] 1 tab PO DAILY 02/19/24 [History] Multivitamin [Multi-Vitamin Daily] 1 each PO DAILY 02/19/24 [History] Hx Tetanus, Diphtheria Vaccination/Date Given: No Hx Influenza Vaccination/Date Given: Yes Hx Pneumococcal Vaccination/Date Given: Yes Travel Risk - International Travel Have you traveled outside of the country in past 3 weeks: No - Emerging Infectious Disease Are you exhibiting symptoms associated with any current EIDs: No Symptoms: Cough: New Onset - Review of Systems Constitutional: Fatigue Ears, Nose, & Throat: Nose Pain, Nose Congestion, Throat Swelling Respiratory: Cough, Dyspnea Cardiac: No Symptoms Abdominal/Gastrointestinal: No Symptoms Musculoskeletal: Arthralgias Skin: No Symptoms Neurological: Dizziness Endocrine: No Symptoms Hematologic/Lymphatic: Easy Bleeding - Past Medical History Pertinent Past Medical History: Yes Neurological History: No Pertinent History ENT History: No Pertinent History Cardiac History: Congestive Heart Failure, Coronary Artery Disease, Deep Vein Thrombosis, Hypertension, Myocardial Infarction ([place]) Respiratory History: Sleep Apnea Endocrine Medical History: Diabetes Type II Musculoskeletal History: No Pertinent History GI Medical History: No Pertinent History History: No Pertinent History Psycho-Social History: Anxiety, Depression Male Reproductive Disorders: No Pertinent History Other Medical History: uses cpap, - Past Surgical History Past Surgical History: Yes Neuro Surgical History: No Pertinent History Cardiac: CABG, Cardiac Catheterization, Cardiac Stent Respiratory: No Pertinent History Gastrointestinal: No Pertinent History Genitourinary: No Pertinent History Musculoskeletal: No Pertinent History Male Surgical History: No Pertinent History Other Surgical History: bypass surgery 8 years ago Significant Family History: no pertinent family hx - Social History Smoking Status: Never smoker Exposure to second hand smoke: No Drug Use: none - Social Determinants of Health Will the patient participate in the screening: Yes Do you worry about a steady place to live?: No Do you have any problems with any of the following?: No known problems In the past 12 months,have you had to go without utilities?: No Transportation Issues: No Has anyone in your support network made you feel unsafe?: No Have you or anyone in your house had to go w/o enough food: No - Nursing Vital Signs Nursing Vital Signs: Initial Vital Signs Temperature 97.8 F 02/23/25 23:14 Pulse Rate 137 H 02/23/25 23:14 Respiratory Rate 28 H 02/23/25 23:14 Blood Pressure 77/53 02/23/25 23:14 O2 Sat by Pulse Oximetry 100 02/23/25 23:14 Pain Scale Pain Intensity 9 - Physical Exam General Appearance: no apparent distress, alert Eye Exam: PERRL/EOMI Ears, Nose, Throat Exam: other (Rhino Rocket on the right) Neck Exam: normal inspection, non-tender, supple, full range of motion Respiratory Exam: normal breath sounds, lungs clear, airway intact Cardiovascular Exam: normal heart sounds, tachycardia Gastrointestinal/Abdomen Exam: soft, normal bowel sounds Extremity Exam: normal inspection, normal range of motion Neurologic Exam: alert, oriented x 3, 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, 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 Skin Exam: normal color SpO2 Interpretation: O2 applied SpO2: 95 O2 Delivery: Nasal Cannula - Course EKG Interpreted by Me: RATE (138, atrial flutter), Left [place] Deviation, LAFB, Right Bundle Branch Block, Q-wave, Non-specific ST Changes Ordered Tests: Active Orders 24 hr Category Date Time Status Client Services Coordinator STAT Care 02/23/25 23:25 Active EKG-ER Only STAT Care 02/23/25 23:24 Active IV Insertion STAT Care 02/23/25 23:24 Active Oxygen-ED Only Nasal Cannula 3 lpm Care 02/23/25 23:24 Active CHEST 1 VIEW (PORTABLE) Stat Exams 02/23/25 23:42 Taken BLOOD CULTURE Stat Lab 02/24/25 00:29 Received CBC W DIFF Stat Lab 02/23/25 23:20 Completed CMP Stat Lab 02/23/25 23:20 Completed Lactic Acid Stat Lab 02/24/25 00:25 Completed MAGNESIUM Stat Lab 02/23/25 23:20 Completed NT PRO BNPII Stat Lab 02/23/25 23:20 Completed TROPONIN Q4H Lab 02/23/25 23:20 Completed TROPONIN Q4H Lab 02/24/25 03:30 Ordered TROPONIN Q4H Lab 02/24/25 07:30 Ordered Medication Summary Generic Name Dose Route Start Last Admin Trade Name Freq PRN Reason Stop Dose Admin Amiodarone HCl/Dextrose 360 mg in 200 mls @ 33 mls/hr 02/24/25 00:15 02/24/25 00:21 Nexterone 360 Mg/200 Ml Bag IV 03/26/25 00:14 33 mls/hr .Q6H4M CARRI 33 mls/hr Administration Protocol Discontinued Medications Generic Name Dose Route Start Last Admin Trade Name Freq PRN Reason Stop Dose Admin Amiodarone HCl 150 mg 02/23/25 23:50 Amiodarone Hcl 150 Mg/3 Ml Vial IV 02/23/25 23:51 STAT ONE Amiodarone HCl Confirm 02/23/25 23:52 Amiodarone Hcl 150 Mg/3 Ml Vial Administered 02/23/25 23:53 Dose 150 mg .ROUTE .STK-MED ONE Amiodarone HCl 150 mg/ 103 mls @ 618 mls/hr 02/23/25 23:50 02/24/25 00:10 Dextrose IV 02/23/25 23:59 618 mls/hr STAT ONE 618 mls/hr Administration Protocol Sodium Chloride Confirm 02/24/25 00:02 Sodium Chloride 0.9% Administered 02/24/25 00:03 Dose 100 mls @ ud .ROUTE .STK-MED ONE Dextrose Confirm 02/24/25 00:05 D5w 100ml Mini Bag 100 Ml Administered 02/24/25 00:06 Dose 100 mls @ ud IV .STK-MED ONE Lab/Rad Data: Laboratory Result Diagrams 02/23/25 23:20 02/23/25 23:20 Laboratory Results 02/24/25 02/23/25 02/23/25 Range/Units 00:25 23:20 23:20 WBC (4.23-9.07) x10^3/uL RBC (4.63-6.08) x10^6/uL Hgb (13.7-17.5) g/dL Hct (40.1-51.0) % MCV (79.0-92.2) fL MCH (25.7-32.2) pg MCHC (32.3-36.5) g/dL RDW (11.6-14.4) % Plt Count (163-337) x10^3/uL MPV (9.4-12.4) fL Gran % (34.0-67.9) % Immature Gran % (Auto) (0.001-0.429) % Nucleat RBC Rel Count (0.00-0.2) % Eos # (Auto) (0.04-0.54) x10^3/uL Immature Gran # (Auto) (0.001-0.031) x10^3u/L Absolute Lymphs (auto) (1.32-3.57) x10^3/uL Absolute Monos (auto) (0.30-0.82) x10^3/uL Absolute Nucleated RBC (0.00-0.012) x10^3u/L Lymphocytes % (21.8-53.1) % Monocytes % (5.3-12.2) % Eosinophils % (0.8-7.0) % Basophils % (0.2-1.2) % Absolute Granulocytes (1.78-5.38) x10^3/uL Basophils # (0.01-0.08) x10^3/uL Sodium 137 (135-145) mmol/L Potassium 4.2 (3.5-5.1) mmol/L Chloride 100 (98-107) mmol/L Carbon Dioxide 24 (22-30) mmol/L Anion Gap 17.0 H (5-15) MEQ/L BUN 44 H (9-20) mg/dL Creatinine 1.53 H (0.66-1.25) mg/dL Estimated GFR 48.9 ML/MIN Glucose 148 H (74-106) mg/dL Lactic Acid 2.5 H (0.4-2.0) Calcium 8.9 (8.4-10.2) mg/dL Magnesium 2.0 (1.6-2.3) mg/dL Total Bilirubin 0.60 (0.2-1.3) mg/dL AST 45 (17-59) U/L ALT 31 (0-50) U/L Alkaline Phosphatase 83 (38-126) U/L Troponin I 0.026 (0.000-0.033) ng/mL NT-Pro-B Natriuret Pep 7140 (<300) pg/mL Serum Total Protein 6.4 (6.3-8.2) g/dL Albumin 3.6 (3.5-5.0) g/dL 02/23/25 Range/Units 23:20 WBC 6.3 (4.23-9.07) x10^3/uL RBC 3.57 L (4.63-6.08) x10^6/uL Hgb 9.6 L (13.7-17.5) g/dL Hct 30.5 L (40.1-51.0) % MCV 85.4 (79.0-92.2) fL MCH 26.9 (25.7-32.2) pg MCHC 31.5 L (32.3-36.5) g/dL RDW 16.9 H (11.6-14.4) % Plt Count 205 (163-337) x10^3/uL MPV 9.7 (9.4-12.4) fL Gran % 75.5 H (34.0-67.9) % Immature Gran % (Auto) 0.3 (0.001-0.429) % Nucleat RBC Rel Count 0.0 (0.00-0.2) % Eos # (Auto) 0.12 (0.04-0.54) x10^3/uL Immature Gran # (Auto) 0.02 (0.001-0.031) x10^3u/L Absolute Lymphs (auto) 0.81 L (1.32-3.57) x10^3/uL Absolute Monos (auto) 0.58 (0.30-0.82) x10^3/uL Absolute Nucleated RBC 0.00 (0.00-0.012) x10^3u/L Lymphocytes % 12.9 L (21.8-53.1) % Monocytes % 9.2 (5.3-12.2) % Eosinophils % 1.9 (0.8-7.0) % Basophils % 0.2 (0.2-1.2) % Absolute Granulocytes 4.75 (1.78-5.38) x10^3/uL Basophils # 0.01 (0.01-0.08) x10^3/uL Sodium (135-145) mmol/L Potassium (3.5-5.1) mmol/L Chloride (98-107) mmol/L Carbon Dioxide (22-30) mmol/L Anion Gap (5-15) MEQ/L BUN (9-20) mg/dL Creatinine (0.66-1.25) mg/dL Estimated GFR ML/MIN Glucose (74-106) mg/dL Lactic Acid (0.4-2.0) Calcium (8.4-10.2) mg/dL Magnesium (1.6-2.3) mg/dL Total Bilirubin (0.2-1.3) mg/dL AST (17-59) U/L ALT (0-50) U/L Alkaline Phosphatase (38-126) U/L Troponin I (0.000-0.033) ng/mL NT-Pro-B Natriuret Pep (<300) pg/mL Serum Total Protein (6.3-8.2) g/dL Albumin (3.5-5.0) g/dL - Progress Progress: improved Progress Note: 02/24/25 00:11 69-year-old is evaluated in the ER for dizziness/lightheadedness with tachycardia after a coughing spell with possible aspiration/choked on a hard candy earlier. Patient has left Rhino Rocket and also complaining of headache. Patient blood pressure is in 70s and heart rate in 140s on presentation EKG is consistent with a flutter with right bundle branch block, diffuse ST depressions. I have shared and discussed EKG with Dr. Britt cardiology [place] who is well known to this patient, agreed as patient possibly has atrial flutter and recommended starting on amiodarone as per protocol. Patient already have a fluid bolus by EMS and pressure is still in 70s, patient has history of CHF and I would not give him more fluids. If patient blood pressure does not improve, will start him on low-dose Levophed per cardiology. Has normal white count, stable H&H, chemistries fairly unremarkable, stable CKD and negative initial troponin. Chest x-ray is negative for any acute cardiopulmonary findings reviewed by me with pending official report. I have discussed with [facility] physician Dr. Mihai Higgins , reviewed history, workup, cardiology recommendations and patient is excepted for transfer. I have shared the results of workup and plan of care/transfer with patient and family which they understand and agree. 02/24/25 00:22 Pressure is improved to 97 systolic after Amio bolus and heart rate in 130s patient is feeling better Discussed with Dr.: Other (Dr. Britt cardiology and Dr. Mihai Higgins [facility]) Will see patient in: ED Counseled pt/family regarding: lab results, diagnosis, need for follow-up, rad results Medical Desision Making - Independent Historian Additional History obtained from: Spouse, Television Engineering Teacher/EMT - External Record(s) Reviewed Records reviewed as a part of evaluation & management: EMS - Discussion of managment Care discussed with:: specialist (Dr. Britt) Reviewed:: Test results Agreed on:: Treatment plan Will see patient: in ED - Diagnostic Testing Diagnostic test were ordered, analyzed, and reviewed by me: Yes Radiological Interpretation: Interpreted by me, Reviewed by me - Risk of complications The pt has a mod risk of morbidity or mortality based on: Need for prescription drug management The pt has a high risk of morbidity or mortality based on: Drug therapy requiring intensive monitoring for toxicity, Decision regarding hospitilization or escalation of hosp level of care - Departure Departure Disposition: Transfer Clinical Impression: Dizziness, Atrial flutter with rapid ventricular response, Hypertension Condition: Fair Critical Care Time: Yes Critical Care Time(excluding separately billable procedures): Critical 30-74 mins Referrals: ARTURO BOB, BLEACHING MACHINE OPERATOR [Primary Care Provider] - Follow up/PCP as directed
[2025-02-24] MEDS: NEXTERONE 360 MG/200 ML BAG 360 MG/200 ML PLAST..BAG IV SCH (00:21)
[2025-02-24 00:24] VITALS: RESP 21
[2025-02-24] MEDS ORDERED: NOREPINEPHRINE 8 MG/250 ML-D5W 8 MG/250 ML PLAST..BAG IV ONE (00:42)
[2025-02-24] MEDS: NOREPINEPHRINE 8 MG/250 ML-D5W 8 MG/250 ML PLAST..BAG IV PRN (00:44)
[2025-02-24 00:53] VITALS: BP 67/45; PULSE 135
--- NOTE | 2025-02-24 09:25 | XRAY ---
Indication: Dizziness. Chest pain. Comparison: February 19, 2024 Portable chest again demonstrates cardiomegaly with CABG. New left dual-lead pacemaker. Lungs again demonstrates minimal pulmonary edema with small bibasilar effusions. No new cardiopulmonary abnormalities.
== END 2025-02-24 00:53 | disposition short-term general hospital (02) ==
LOC: ED 23:11
DX: I48.92 Unspecified atrial flutter (principal); I11.0 Hypertensive heart disease with heart failure; R42 Dizziness and giddiness; I95.9 Hypotension, unspecified; J02.9 Acute pharyngitis, unspecified; I50.9 Heart failure, unspecified; E11.9 Type 2 diabetes mellitus without complications; Z79.4 Long term (current) use of insulin; Z79.84 Long term (current) use of oral hypoglycemic drugs; Z79.899 Other long term (current) drug therapy
CPT/HCPCS: 36415; 71045; 80053; 83605; 83735; 83880; 84484; 85025; 87040; 93005; 93041; 96374; 96375; 99285; 99291; J0282